=== PATIENT | male | born 1955 | race Caucasian/White ===

== ENCOUNTER 2017-01-01 08:05 | Inpatient (IN) | payer BC ==
--- NOTE | 2016-12-14 09:46 | PAT Medication Instructions ---
Service Date Dec 14, 2016. Current Home Medication List Ibuprofen (Motrin), 800 MG PO QID PRN for Pain Multivitamin (Multivitamin), 1 TAB PO QAM Valsartan (Diovan), 160 MG PO QAM Vitamins C & E (Vitamin C), 1 TAB PO QAM [Lysine], 1 TAB PO QAM [Potassium], 1 TAB PO QAM Medication Instructions For Your Scheduled Surgery - Hold the following medications 7 days prior to surgery: Ibuprofen (Motrin), 800 MG PO QID PRN for Pain - Hold the following medications the morning of surgery: Lysine 1 TAB PO QAM Potassium 1 TAB PO QAM Multivitamin (Multivitamin), 1 TAB PO QAM Vitamins C (Vitamin C), 1 TAB PO QAM Valsartan (Diovan), 160 MG PO QAM - Take the following medications the morning of surgery with a sip of water: Tylenol (if needed) - Take the following medications as scheduled the night before surgery: Tylenol (if needed) If you have any questions please call us at [phone] or [phone] ( Carol) or [phone]
--- NOTE | 2016-12-14 10:25 | DIAGNOSTIC IMAGING REPORT ---
CHEST PREADMISSION(PA/LAT) CLINICAL HISTORY: Preoperative chest COMPARISON STUDY: No previous studies for comparison. FINDINGS: The cardiac and mediastinal contours are normal. There is no evidence of focal pulmonary consolidation. There is no evidence of failure. No pleural effusions are visualized.[ IMPRESSION: No active disease in the chest. Electronically signed by: Arnulfo Hernandez M.D. 12/14/2016 10:24 AM Dictated Date/Time: 12/14/2016 10:24 AM
[2016-12-14 10:35] LABS: BASO % 0.4 %; BASO ABS # 0.03 K/uL (0-0.2); COMPLETE YES; EOS % 3.4 %; HEMATOCRIT 42.9 % (42-52); IG% 0.6 %; LYMPH % 26.2 %; LYMPH ABS # 2.14 K/uL (1.2-3.4); MEAN CELL VOLUME 89.2 fL (80-100); MEAN CORPUSCULAR HGB CONC 34.7 g/dl (32-36); MEAN PLATELET VOLUME 11.7 fL (7.4-10.4); MONO % 12.1 %; NEUT % 57.3 %; PLATELET COUNT 240 K/uL (130-400); RED BLOOD COUNT 4.81 M/uL (4.7-6.1); WHITE BLOOD COUNT 8.17 K/uL (4.8-10.8)
[2016-12-14 10:44] LABS: URINE APPEARANCE CLEAR (CLEAR); URINE BILIRUBIN NEG (NEG); URINE COLOR YELLOW; URINE NITRITE NEG (NEG); URINE SPECIFIC GRAVITY 1.025 (1.000-1.030); UROBILINOGEN NEG (NEG)
[2016-12-14 10:49] LABS: BUN/CREATININE RATIO 19.7 (10-20); CALCIUM 9.2 mg/dl (8.5-10.1); CREATININE 0.92 mg/dl (0.60-1.40); POTASSIUM 4.5 mmol/L (3.5-5.1)
[2016-12-14 10:51] LABS: MANUAL MICROSCOPIC REQUIRED? NO; REVIEW REQ? NO
--- NOTE | 2016-12-28 09:15 | HISTORY & PHYSICAL EXAMINATION ---
DATE OF ADMISSION: 01/01/2017 HISTORY OF PRESENT ILLNESS: The patient presents to our office with a history of chronic back pain. It became remarkably exacerbated in February 2016. He now has radiating pain involving bilateral buttock as well as the right posterior thigh and below the knee. This is reproduced with prolonged sitting, standing and walking. It does awaken him from sleep. 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 He has had several courses of epidural injections which have not provided long-term relief. He takes the antiinflammatory medication for pain control. PAST MEDICAL HISTORY: The patient's medical history is significant for arthritis, skin cancer in 1995, hypertension, pulmonary embolism after right elbow surgery in 1975. PAST SURGICAL HISTORY: Significant for hernia repair, bilateral elbows and finger. ALLERGIES: None listed. MEDICATIONS: 1. Diovan 160 mg a day. 2. Ibuprofen 800 mg 3-4 day. SOCIAL HISTORY: He is . 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 Alcohol is occasional. Tobacco none. Drug use none. FAMILY HISTORY: Significant for arthritis, cancer, hypertension, stroke. REVIEW OF SYSTEMS: Significant for difficulty walking, back pain, leg pain. PHYSICAL EXAMINATION: VITAL SIGNS: 5 feet 6 inches, 180 pounds. HEENT: Speech appropriate. CARDIOPULMONARY: No gross abnormalities. ABDOMEN: Soft, nontender. GENITOURINARY: Deferred. NEUROLOGIC: Cranial nerves II through XII grossly intact. MUSCULOSKELETAL: He ambulates with an antalgic gait. Flexion, extension reproduces pain. He has brisk patella and Achilles reflexes. No ankle clonus. 4+/5 plantarflexion, dorsiflexion and quadriceps bilaterally. No gross tension signs. ASSESSMENT: Spinal stenosis, retrolisthesis of L2-L3. PLAN: At this point in time, he has failed conservative therapy. May consider surgical intervention. Surgery would require lumbar decompression with instrumented fusion L2-L3. Risks, benefits, pros, cons, and alternatives were outlined in detail. The patient would like to proceed with above-mentioned surgical planning.
[~2017-01-01] VITALS: Ht 167.6 cm; Wt 85.5 kg
[2017-01-01] VITALS (8 sets, daily range): BP systolic 128–151; BP diastolic 75–102; PULSE 70–99; TEMP 36.3–36.7; O2SAT 93–98; Ht 167.6 cm; Wt 85.5 kg
--- NOTE | 2017-01-01 07:23 | History & Physical Bridge Note ---
H&P Re-Evaluation Bridge Note: I have examined the patient, reviewed the History & Physical and in the interval since the performance of the History & Physical I have noted the following changes of clinical significance: No changes noted
[~2017-01-01 08:05] MED LIST: CEFAZOLIN 2000 MG/60 ML D5W IV SCH; DVN/160 PO; IBUP-1428 PO; LACTATED RINGER'S 1000ML 1,000 ML IV SCH; LYSINE PO; MULT-506 PO; POTASSIUM PO; VITACAP26 PO
[2017-01-01] MEDS ORDERED: FENTANYL CITRATE INJ 50 MCG/1 ML 2 ML VIAL ONE ×3 (09:31→10:55)
[2017-01-01] MEDS ORDERED: MIDAZOLAM HCL 1 MG/ML 2ML VIAL ONE (09:31)
[2017-01-01] MEDS ORDERED: LABETALOL HCL IV 5 MG/ML 20ML IV PRN (09:45)
[2017-01-01] MEDS ORDERED: FENTANYL CITRATE INJ 50 MCG/1 ML 2 ML VIAL IV PRN (09:45)
[2017-01-01] MEDS ORDERED: EpHEDrine SULFATE INJ 50 MG/ML AMP IV PRN (09:45)
[2017-01-01] MEDS ORDERED: ATROPINE SULFATE 0.1 MG/ML 5ML SYR IV PRN (09:45)
[2017-01-01] MEDS ORDERED: HYDROmorphone INJ 1 MG/ML SYR IV PRN (09:45)
[2017-01-01] MEDS ORDERED: ONDANSETRON INJ 2 MG/ML 2 ML VIAL IV PRN ×2 (09:45→11:45)
[2017-01-01] MEDS ORDERED: MEPERIDINE HCL 25 MG/ML CARP IV PRN (09:45)
[2017-01-01] MEDS ORDERED: BUPIVACAINE/EPINEPHRINE 0.5% MPF 1:200,000 30 ML VIAL ONE (09:53)
[2017-01-01] MEDS ORDERED: BACITRACIN 50000 UNIT VIAL ONE (09:53)
[2017-01-01] MEDS ORDERED: SODIUM CHLORIDE 0.9% PF 50 ML VIAL ONE (09:53)
[2017-01-01] MEDS ORDERED: HYDROmorphone INJ 2 MG/ML SYR/VIAL ONE ×2 (10:37→11:41)
[2017-01-01] MEDS ORDERED: SODIUM CHLORIDE 0.9% 1000ML 1,000 ML IV SCH (11:31)
--- NOTE | 2017-01-01 11:31 | [facility] Post Operative Brief Note ---
Immediate Operative Summary Operative Date Jan 01, 2017. Pre-Operative Diagnosis Spinal stenosis, retrolisthesis of L2-L3 Post-Operative Diagnosis Same as preop Procedure(s) Performed L2-L3 Lumbar Decompression and Fusion with screw fixation; Interbody fusion with Placement of Interbody Spacer at L2-L3; Application of Ayleen Allograft, Application of Bone Morphogenetic Protein Surgeon Dr. Nicolas Izaguirre Donor Services Specialist Surgeon(s) Ghosh ([place]), [place] Estimated Blood Loss 150ML Findings spondy/stenosis Specimens none per surgeon
[2017-01-01] MEDS ORDERED: FLOSEAL HEMOSTATIC MATRIX 10ML TOP ONE (11:33)
[2017-01-01] MEDS ORDERED: EpHEDrine SULFATE 50MG/5ML SYR ONE ×2 (11:40→11:43)
[2017-01-01] MEDS ORDERED: ROCURONIUM BROMIDE 10 MG/ML 5 ML VIAL ONE (11:40)
[2017-01-01] MEDS ORDERED: PHENYLEPHRINE 100MCG/ML 5ML SYR ONE ×2 (11:40→11:43)
[2017-01-01] MEDS ORDERED: PROPOFOL IV EMULSION 10 MG/ML 20 ML VIAL IV ONE (11:40)
[2017-01-01] MEDS ORDERED: LIDOCAINE HCL 2% 2 ML VIAL (20MG/ML) ONE (11:40)
[2017-01-01] MEDS ORDERED: DEXAMETHASONE SOD INJ 4 MG/ML VIAL ONE (11:40)
[2017-01-01] MEDS ORDERED: GLYCOPYRROLATE INJ 0.2 MG/ML VIAL ONE (11:43)
[2017-01-01] MEDS ORDERED: KETOROLAC TROMETHAMINE 30 MG/ML VIAL ONE (11:43)
[2017-01-01] MEDS ORDERED: NEOSTIGMINE METHYLSULFATE 1 MG/ML 10ML VIAL ONE (11:43)
[2017-01-01] MEDS ORDERED: SOD PHOSPHATE/SOD BIPHOSPHATE ENEMA 132 ML BTL PR PRN (11:45)
[2017-01-01] MEDS ORDERED: FAMOTIDINE 20 MG TAB PO PRN (11:45)
[2017-01-01] MEDS ORDERED: PROMETHAZINE HCL INJ 12.5 MG in SODIUM CHLORIDE 0.9% 50ML 50 ML IV PRN (11:45)
[2017-01-01] MEDS ORDERED: LORAZEPAM INJ 0.5 MG in SYRINGE 0 ML IV PRN (11:45)
[2017-01-01] MEDS ORDERED: ACETAMINOPHEN IV 100 ML IV PRN (11:45)
[2017-01-01] MEDS ORDERED: hydrOXYzine HCL 25 MG TAB PO PRN (11:45)
[2017-01-01] MEDS ORDERED: MAGNESIUM HYDROXIDE SUSP 30 ML UDC PO PRN (11:45)
[2017-01-01] MEDS ORDERED: ACETAMINOPHEN 500 MG TAB PO PRN (11:45)
[2017-01-01] MEDS ORDERED: DO NOT ADMINISTER PNEUMOCOCCAL VACCINE PRN ×2 (11:45)
[2017-01-01] MEDS ORDERED: LORAZEPAM 0.5 MG TAB PO PRN (11:45)
[2017-01-01] MEDS ORDERED: ALUMINUM/MAGNESIUM SUSP 30 ML UDC PO PRN (11:45)
[2017-01-01] MEDS ORDERED: METOCLOPRAMIDE HCL INJ 5 MG/ML 2 ML VIAL IV PRN (11:45)
[2017-01-01] MEDS ORDERED: NALOXONE HCL 0.4 MG/1 ML VIAL/CARP IV PRN ×2 (11:45)
[2017-01-01] MEDS ORDERED: BISACODYL 10 MG SUPP PR PRN (11:45)
[2017-01-01] MEDS ORDERED: DO NOT ADMINISTER FLU VACCINE PRN ×3 (11:45)
[2017-01-01] MEDS ORDERED: HYDROmorphone HCL 0.5MG/ML 50 ML CASSETTE ONE (12:10)
[2017-01-01] MEDS ORDERED: ONDANSETRON INJ 2 MG/ML 2 ML VIAL ONE (12:11)
[2017-01-01] MEDS ORDERED: ESMOLOL HCL 10 MG/ML 10 ML VIAL ONE (12:12)
--- NOTE | 2017-01-01 12:15 | DIAGNOSTIC IMAGING REPORT ---
LUMBAR SPINE, INTRAOPERATIVE FLUOROSCOPY HISTORY: L2-L3 decompression and fusion. FLUOROSCOPY TIME: 19 seconds. FINDINGS: Intraoperative fluoroscopy was provided for the lumbar spine. 2 fluoroscopic spot images were obtained. Posterior decompression and fusion at L2-L3 with pedicle screws and rods. The hardware appears intact. IMPRESSION: Fluoroscopy provided for a L2-L3 posterior decompression and fusion. Electronically signed by: Everton Sewell M.D. 01/01/2017 12:12 PM Dictated Date/Time: 01/01/2017 12:12 PM
[2017-01-01] MEDS: LACTATED RINGER'S 1000ML 1,000 ML IV SCH ×2 (13:00→17:43)
[2017-01-01] MEDS ORDERED: RXC5 PO (13:56)
--- NOTE | 2017-01-01 13:57 | Discharge Instructions ---
Discharge Instructions Date of Service Jan 01, 2017. Admission Reason for Admission: Lumbar Spinal Stenosis Discharge Discharge Diagnosis / Problem: stenosis Discharge Goals Goal(s): Improve function Activity Recommendations Activity Limitations: per Instructions/Follow-up section . Instructions / Follow-Up Instructions / Follow-Up ACTIVITY RECOMMENDATIONS: SELF CARE INSTRUCTIONS AFTER THORACIC/LUMBAR FUSIONS 1. You may walk to your tolerance. It is good exercise for your legs and back. Expect some back and intermittent leg aches and pains. 2. You may perform "counter-top" level activities (make a sandwich, soledad with a project, etc.). 3. No bending or lifting of more than 10 pounds or back twisting of any nature (roll like a log when turning in bed). 4. You may ride in a car for 20-30 minutes at a time. No driving until after your first visit with your doctor. 5. Frequent changes of position and restricting sitting to 30 minutes at a time will help limit the amount of back spasms and stiffness you may experience. 6. You may discontinue the use of ambulatory aids (cane, crutches, etc.) once your strength and confidence allow. 7. You may business performance advisor the shower and let water strike your incision when you arrive home at least once daily. Do not take a tub bath, sit in a hot tub or go into a swimming pool until after your first recheck in the office. SPECIAL CARE INSTRUCTIONS: VERY IMPORTANT TO READ AND REVIEW A. Your surgical incision has been closed with a cosmetic suture under the skin that will dissolve in about 6 weeks. In 14 days, you can use a pair of clean scissors and cut the suture that is left outside of the skin at the ends of your incision. 1. The small skin tapes can be removed 7 days after surgery if they have not fallen off by that point. 2. You may keep the wound open to air as much as possible to promote healing after post-op day number 5 unless told otherwise by your doctor. 3. If you think the wound looks like it is becoming infected (redness or worsening drainage) and/or you are experiencing fever, chill or worsening back pain and muscle spasms, contact the office so that we may evaluate you as soon as possible. B. Complications are uncommon, but please contact us if you have any signs or symptoms of: 1. wound infection (fever higher than 102.5 degrees F, redness, separation of wound, drainage, or increasing pain from the incision) 2. blood clots in legs (pain, swelling, redness and warmth in legs) 3. urinary tract infection (fever higher than 102.5 degrees F, burning upon urination or increased frequency of urination) 4. nerve problems (inability to walk on your toes or heels, numbness, loss of bowel or bladder control) 5. any other symptoms that concern you C. Please call the office at if you have any concerns or questions about your operation or recovery. D. No smoking! Smoking drastically decreases the chance of a solid fusion. E. Do not take any anti-inflammatory medications (Indocin, Advil, Motrin, Aspirin, Naprosyn, etc.) as these may inhibit the chance of a solid fusion. Tylenol is okay to take for pain. MANAGING PAIN AFTER SPINAL SURGERY 1. Narcotic medication is intended for short-term use and will be provided for surgical pain. Surgical pain usually lasts for a period of 4-6 weeks. Narcotic medication includes Percocet, Vicodin, Darvocet, Tylenol #3 or Lortab. 2. Longer-term pain is more appropriately treated with non-narcotic medication such as Tylenol ES. 3. Muscle spasm is not appropriately treated with narcotics. Muscle relaxers such as Soma, Flexeril or Skelaxin can be used along with Tylenol ES. 4. Remember that we all live with some "aches and pains". This is not unusual or uncommon after an injury or as we get older. a. Back pain is expected and may include muscle spasms for 4 to 6 weeks after surgery. The pain should gradually improve. If the pain worsens for no apparent reason, please contact the office. b. Intermittent leg pain may also be experienced and should not be concerned about unless it worsens for no apparent reason. If so, please contact the office. 5. We will provide appropriate medication within the normal guidelines of their prescribed use. We will also be very cautious and aware of potential abuse and extended duration of patients' medication needs. a. Pain medications are for your comfort and to assist with sleep and rest so that the tissue can heal. They are not provided in order to return to normal activity and should not be used through the day. To do so or worsening pain at night can result from ongoing tissue damage and development of tolerance to the prescribed medicine. 6. Please allow 2-3 days to process refills. Prescriptions will not be mailed but must be picked up at the office. FOLLOW UP VISIT: Keep your scheduled follow-up appointment. Any questions, please call the office at . Current Hospital Diet Patient's current hospital diet: Regular Diet Discharge Diet Recommended Diet: Regular Diet Procedures Procedures Performed: L2-L3 Lumbar Decompression and Fusion with screw fixation; Interbody fusion with Placement of Interbody Spacer at L2-L3; Application of Ayleen Allograft, Application of Bone Morphogenetic Protein Pending Studies Studies pending at discharge: no Medical Emergencies . Who to Call and When: Medical Emergencies: If at any time you feel your situation is an emergency, please call 911 immediately. . Non-Emergent Contact Non-Emergency issues call your: Primary Care Provider . "Provider Documentation" section prepared by Nicolas Izaguirre. VTE Core Measure Inpt VTE Proph given/why not?: Robbie Solis, [facility]
--- NOTE | 2017-01-01 13:59 | Anesthesiology Progress Note ---
Anesthesia Post Op Note Date & Time Jan 01, 2017 at 13:58 Vital Signs Pain Intensity: 5.0 Vital Signs Past 12 Hours Date Time Temp Pulse Resp B/P Pulse Ox O2 Delivery O2 Flow Rate FiO2 01/01/17 13:35 36.3 90 16 143/81 93 Nasal Cannula 3.0 01/01/17 13:00 99 16 143/89 94 Nasal Cannula 4.0 01/01/17 13:00 Nasal Cannula 01/01/17 13:00 95 Nasal Cannula 4.0 01/01/17 12:45 93 21 144/89 97 Nasal Cannula 4 01/01/17 12:35 36.1 93 10 138/102 94 Nasal Cannula 4 01/01/17 12:25 90 13 130/87 98 Nasal Cannula 4 01/01/17 12:15 91 12 124/92 100 Mask 10 01/01/17 12:05 95 14 144/86 98 Mask 10 01/01/17 11:58 36.5 96 14 135/88 99 Mask 10 01/01/17 08:34 36.7 70 18 151/102 95 Room Air Notes Mental Status: alert / awake / arousable, participated in evaluation Pt Amnestic to Procedure: Yes Nausea / Vomiting: adequately controlled Pain: adequately controlled Airway Patency, RR, SpO2: stable & adequate BP & HR: stable & adequate Hydration State: stable & adequate Anesthetic Complications: no major complications apparent
[2017-01-01] MEDS ORDERED: HYDROmorphone INJ 0.5 MG/0.5 ML SYR IV PRN (14:15)
--- NOTE | 2017-01-01 14:27 | OPERATIVE REPORT ---
DATE OF OPERATION: 01/01/2017 PREOPERATIVE DIAGNOSIS: Spinal stenosis. POSTOPERATIVE DIAGNOSES: Same with bilateral pars defects and spondylolisthesis L2-L3. PROCEDURES PERFORMED: 1. Lumbar decompression, medial facetectomy, and foraminotomies, L2-L3. 2. Posterior spinal fusion, L2-L3. 3. Placement of posterior instrumentation using Orthros rods and screws, L2-L3. 4. Interbody fusion, L2-L3. 5. Placement of PEEK cage 10 x 22 mm at L2-L3. 6. Placement of locally harvested morselized autograft posterior gutters. 7. Placement of Infuse collagen sponge combined with Mastergraft in the posterior gutters and Ayleen bone grafting in the interbody space. SURGEON: Dr. Nicolas Izaguirre. DIRECTOR OF PUBLIC HEALTH: DELON Ortiz. Due to the complex nature of the procedure, the entire surgery was performed with the public health assistant of DELON Ortiz. The bindery library technical assistant, under direct supervision, was involved in the actual performance of all aspects of the surgical procedure including hemostasis, tissue retraction and incision, instrument management, patient positioning, and wound closure. ANESTHESIA: General. DISPOSITION: The patient awakened and taken to PACU in stable condition. HISTORY OF PATIENT'S PROBLEMS: This is a 61-year-old male who presents with above-mentioned diagnoses. After failing an extensive course of nonoperative care, he elected to undergo the above-mentioned procedures. Risks, benefits, pros, cons, and alternatives were outlined in detail preoperatively. DESCRIPTION OF PROCEDURE: The patient was met with preoperatively, the case discussed and all questions were addressed. At that point the patient was taken back to operative suite and after undergoing successful general intubation by the department of anesthesia, he was placed in prone position on Nba table atop Mike frame. All bony prominences were well padded and the eyes were inspected to ensure there was no external pressure placed upon them. At this point, lumbar spine was prepped and draped in normal sterile fashion. Sharp dissection with the assistance of Bovie cautery performed down to and exposing the lamina and transverse processes of L2-L3 bilaterally. Obvious pars defect was noted. Complete laminectomy of L2 was performed addressing severe lateral recess and foraminal stenosis. Pedicle screws were then placed in L2 and L3 bilaterally with the assistance of fluoroscopy and appropriate size manuel provisionally placed. Through a transforaminal approach on the right, a complete diskectomy was performed, endplates curetted to subcortical bleeding bone and a 10 x 22 mm PEEK cage filled with Ayleen bone grafting tapped into position. Appropriate sized rods were then compressed, locked into final position bilaterally and transverse processes of L2-L3 burred to subcortical bleeding bone. Infuse collagen sponge combined with Mastergraft and locally harvested morselized autograft was placed in the posterior gutters. A 7 flat THU drain inserted. Incision was closed with 1-0 Vicryl in the fascia, 2-0 Vicryl subcutaneously, and 4-0 Monocryl for final skin closure. Steri-Strips and sterile dressing placed. The patient was awakened and taken to PACU in stable condition. I attest to the content of the Intraoperative Record and any orders documented therein. Any exceptio ns are noted below.
[2017-01-01] MEDS: HYDROmorphone HCL 0.5MG/ML 50 ML CASSETTE IV PRN ×2 (14:54→23:10)
[2017-01-01] MEDS: CEFAZOLIN IV 2,000 MG in DEXTROSE 5% 50ML 50 ML IV SCH (17:43)
[2017-01-01] MEDS: DOCUSATE SODIUM/SENNA 50/8.6MG TAB PO SCH (20:59)
[2017-01-01] MEDS: DEXAMETHASONE INJ 6 MG in SYRINGE 0 ML IV SCH (21:00)
[2017-01-02] MEDS: LACTATED RINGER'S 1000ML 1,000 ML IV SCH (00:16)
[2017-01-02] MEDS: CEFAZOLIN IV 2,000 MG in DEXTROSE 5% 50ML 50 ML IV SCH (01:44)
[2017-01-02] MEDS: DEXAMETHASONE INJ 6 MG in SYRINGE 0 ML IV SCH ×2 (03:43→12:08)
[2017-01-02 03:55] VITALS: BP 125/75; PULSE 95; TEMP 36.5; O2SAT 96
[2017-01-02 05:11] VITALS: PULSE 95; O2SAT 95
[2017-01-02] MEDS ORDERED: HYDROmorphone INJ 0.5 MG/0.5 ML SYR IV PRN ×2 (06:00)
[2017-01-02] MEDS ORDERED: DC PCA SCH (06:00)
[2017-01-02 06:19] LABS: COMPLETE YES; HEMATOCRIT 34.8 % (42-52); IG% 0.3 %; LYMPH % 4.4 %; LYMPH ABS # 0.92 K/uL (1.2-3.4); MEAN CELL VOLUME 89.5 fL (80-100); MEAN CORPUSCULAR HEMOGLOBIN 30.1 pg (25-34); MEAN CORPUSCULAR HGB CONC 33.6 g/dl (32-36); MEAN PLATELET VOLUME 11.3 fL (7.4-10.4); MONO % 4.1 %; NEUT % 91.2 %; PLATELET COUNT 223 K/uL (130-400); RED BLOOD COUNT 3.89 M/uL (4.7-6.1)
[2017-01-02] MEDS ORDERED: NURSING VERBAL MED ORDER ONE (06:30)
[2017-01-02 06:46] LABS: BUN/CREATININE RATIO 18.3 (10-20); CALCIUM 8.3 mg/dl (8.5-10.1); CREATININE 0.93 mg/dl (0.60-1.40); POTASSIUM 4.6 mmol/L (3.5-5.1)
[2017-01-02] MEDS: OXYCODONE HCL IR 5 MG TAB (IMMEDIATE RELEASE) PO PRN ×3 (07:09→13:54)
[2017-01-02 07:43] VITALS: BP 131/84; PULSE 92; TEMP 36.6; O2SAT 92
--- NOTE | 2017-01-02 08:20 | Anesthesiology Progress Note ---
Anesthesia Post Op Note Date & Time Jan 02, 2017 at 08:15 Vital Signs Pain Intensity: 3.0 Vital Signs Past 12 Hours Date Time Temp Pulse Resp B/P Pulse Ox O2 Delivery O2 Flow Rate FiO2 01/02/17 07:43 36.6 92 16 131/84 92 Room Air 01/02/17 07:00 Room Air 01/02/17 05:11 95 95 Room Air 01/02/17 03:55 36.5 95 16 125/75 96 Nasal Cannula 2.0 01/02/17 00:23 Nasal Cannula 2.0 01/01/17 23:12 36.4 97 16 135/82 94 Nasal Cannula 2.0 Notes Mental Status: alert / awake / arousable, participated in evaluation Pt Amnestic to Procedure: Yes Nausea / Vomiting: adequately controlled Pain: adequately controlled Airway Patency, RR, SpO2: stable & adequate BP & HR: stable & adequate Hydration State: stable & adequate Anesthetic Complications: no major complications apparent
--- NOTE | 2017-01-02 08:45 | PROGRESS NOTE ---
DATE: 01/02/2017 DATE: 01/02/2017. SUBJECTIVE: Postop day 1. Back pain controlled. Leg pain improved. Vital signs stable. T-max 36.6. THU drained 80 mL. Hematocrit this a.m. is 34.8. OBJECTIVE: On exam, he has good strength to testing, appears comfortable. ASSESSMENT: Status post lumbar decompression and fusion. PLAN: At this time, initiate physical therapy, advance bowel regimen and hopefully discharge home tomorrow.
[2017-01-02] MEDS: VALSARTAN 160 MG PO SCH (08:58)
[2017-01-02] MEDS ORDERED: VALSARTAN 80 MG TAB PO SCH (09:00)
[2017-01-02 11:38] VITALS: BP 103/65; PULSE 90; TEMP 36.6; O2SAT 93
[2017-01-02 15:17] VITALS: BP 129/83; PULSE 95; TEMP 36.6; O2SAT 93
[2017-01-02] MEDS: HYDROmorphone INJ 1 MG/ML SYR IV PRN ×2 (17:18→20:37)
[2017-01-02] MEDS: DOCUSATE SODIUM/SENNA 50/8.6MG TAB PO SCH (20:35)
[2017-01-02 23:29] VITALS: BP 149/99; PULSE 97; TEMP 36.7; O2SAT 93
[2017-01-03] MEDS: POLYETHYLENE (MIRALAX) 17 GM PACK PO SCH ×3 (05:16→18:00)
[2017-01-03] MEDS: OXYCODONE HCL IR 5 MG TAB (IMMEDIATE RELEASE) PO PRN ×3 (05:17→18:18)
[2017-01-03 06:01] VITALS: BP 123/80; PULSE 86; TEMP 36.6; O2SAT 93
--- NOTE | 2017-01-03 07:17 | Discharge Instructions ---
Discharge Instructions Date of Service Jan 03, 2017. Admission Reason for Admission: Lumbar Spinal Stenosis Discharge Discharge Diagnosis / Problem: post op Discharge Goals Goal(s): Decrease discomfort, Improve function, Increase independence Activity Recommendations Activity Limitations: per Instructions/Follow-up section . Current Hospital Diet Patient's current hospital diet: Regular Diet Discharge Diet Recommended Diet: Regular Diet Procedures Procedures Performed: L2-L3 Lumbar Decompression and Fusion with screw fixation; Interbody fusion with Placement of Interbody Spacer at L2-L3; Application of Ayleen Allograft, Application of Bone Morphogenetic Protein Pending Studies Studies pending at discharge: no Medical Emergencies . Who to Call and When: Medical Emergencies: If at any time you feel your situation is an emergency, please call 911 immediately. . Non-Emergent Contact Non-Emergency issues call your: Primary Care Provider . "Provider Documentation" section prepared by Mireya Cordova. VTE Core Measure Inpt VTE Proph given/why not?: [facility] [place] Drug Monitoring Program Search Results: patient reviewed within database (unable to find patient match in system)
[2017-01-03] MEDS: VALSARTAN 160 MG PO SCH (07:50)
--- NOTE | 2017-01-03 14:55 | DISCHARGE SUMMARY ---
PREOPERATIVE DIAGNOSIS: Spinal stenosis. HOSPITAL COURSE FOLLOWS: On January 01 the patient underwent lumbar decompression and fusion L2-L3, tolerated this well and taken to the orthopedic floor postoperatively. Postop day #1, he was up and ambulatory, pain improved. Postop day #2, continued to improve nicely. Pain well controlled. Subsequently discharged home. Discharge orders and instructions found on the chart for further review.
[2017-01-03 15:03] VITALS: BP 130/80; PULSE 88; TEMP 36.8; O2SAT 96
[2017-01-03 15:11] VITALS: BP 130/80; PULSE 88; TEMP 36.8; O2SAT 96
== END 2017-01-03 19:20 | disposition home health service (06) | DRG 460 ==
LOC: ENRESERVTM → ENRESERVDT → C.ACU 08:05 → C.3E 09:30
PROVIDERS: ADMIT Orthopaedic Surgery Orthopaedic Surgery of the Spine; ATTEND Orthopaedic Surgery Orthopaedic Surgery of the Spine
PROC: 0ST20ZZ Resection of Lumbar Vertebral Disc, Open Approach (ICD-10-PCS; principal; 2017-01-01 10:20)
PROC: 0SG0071 Fusion of Lumbar Vertebral Joint with Autologous Tissue Substitute, Posterior Approach, Posterior Column, Open Approach (ICD-10-PCS; principal; 2017-01-01 10:20)
PROC: 0SG00AJ Fusion of Lumbar Vertebral Joint with Interbody Fusion Device, Posterior Approach, Anterior Column, Open Approach (ICD-10-PCS; principal; 2017-01-01 10:20)
DX: M48.00 Spinal stenosis, site unspecified (principal); M43.16 Spondylolisthesis, lumbar region; M47.816 Spondylosis without myelopathy or radiculopathy, lumbar region; I10 Essential (primary) hypertension; G47.33 Obstructive sleep apnea (adult) (pediatric); M19.90 Unspecified osteoarthritis, unspecified site; E66.9 Obesity, unspecified; Z68.30 Body mass index [BMI] 30.0-30.9, adult; Z86.711 Personal history of pulmonary embolism; Z87.891 Personal history of nicotine dependence; Z91.19 Patient's noncompliance with other medical treatment and regimen; Z79.1 Long term (current) use of non-steroidal anti-inflammatories (NSAID); Z79.899 Other long term (current) drug therapy

== ENCOUNTER 2017-01-04 16:10 | Observation (INO) | payer BC ==
[~2017-01-04] VITALS: Ht 167.6 cm; Wt 85.5 kg
[~2017-01-04 16:10] MED LIST changes: -CEFAZOLIN 2000 MG/60 ML D5W IV SCH; -IBUP-1428 PO; -LACTATED RINGER'S 1000ML 1,000 ML IV SCH; +RXC5 PO
[2017-01-04 16:28] VITALS: BP 137/88; PULSE 83; TEMP 36.9; O2SAT 96
[2017-01-04] MEDS ORDERED: LORAZEPAM 1 MG TAB PO PRN (17:00)
[2017-01-04] MEDS ORDERED: PROMETHAZINE HCL INJ 12.5 MG in SODIUM CHLORIDE 0.9% 50ML 50 ML IV PRN (17:00)
[2017-01-04] MEDS ORDERED: LORAZEPAM INJ 1 MG in SYRINGE 0 ML IV PRN (17:00)
[2017-01-04] MEDS ORDERED: ONDANSETRON INJ 2 MG/ML 2 ML VIAL IV PRN (17:00)
[2017-01-04 17:05] VITALS: BP 137/88; PULSE 83; TEMP 36.9; Ht 167.6 cm; Wt 85.5 kg
[2017-01-04] MEDS ORDERED: IV FLUIDS COMPLETED PRN (17:15)
[2017-01-04] MEDS ORDERED: PATIENT'S HEIGHT AND/OR WEIGHT NEEDED SCH (17:30)
[2017-01-04] MEDS ORDERED: NURSING VERBAL MED ORDER ONE (17:45)
[2017-01-04] MEDS ORDERED: SODIUM CHLORIDE 0.9% 1000ML 1,000 ML IV SCH (17:45)
[2017-01-04 18:22] LABS: HEMATOCRIT 39.1 % (42-52); MEAN CELL VOLUME 93.1 fL (80-100); MEAN CORPUSCULAR HGB CONC 32.2 g/dl (32-36); MEAN PLATELET VOLUME 10.7 fL (7.4-10.4); PLATELET COUNT 242 K/uL (130-400); WHITE BLOOD COUNT 15.34 K/uL (4.8-10.8)
[2017-01-04] MEDS ORDERED: MAGNESIUM HYDROXIDE SUSP 30 ML UDC PO PRN (18:30)
[2017-01-04] MEDS ORDERED: MILK AND MOLASSES ENEMA PR ONE (18:30)
[2017-01-04] MEDS: KETOROLAC TROMETHAMINE 30 MG/ML VIAL IV PRN (18:39)
--- NOTE | 2017-01-04 18:47 | Medical Consult ---
Consultation Date of Consultation: Jan 04, 2017. Attending Physician: Nicolas Izaguirre D.O. Reason for Consultation: constipation History of Present Illness This is a 61 y/o male with PMHx of spinal stenosis s/p recent lumbar decompression/fusion, HTN and other problems as outlined below who was directly admitted by Dr. Izaguirre for post-op constipation. Medicine service is being consulted regarding patients constipation. Pt had a lumbar decompression/fusion performed by Dr. Izaguirre on 01/01/17. Per notes, patient did well post- operatively and was discharged yesterday (01/03/17) with Oxycodone q 4 hrs PRN. Last night patient developed worsening abd pain which he describes as a 4/10 "pressure" and "bloating". Sxs are assoc with loss of appetite, nausea and abdominal distention. He has passed small amounts of gas. Last normal BM was 4 days ago. He reports that he typically has 6 soft bowel movements daily. Patient tried taking Senokot last night and an oil enema this morning with no relief. This morning, he experienced two near-syncopal episodes, one while sitting on the commode and the second while lying in bed. He was seen by Dr. Izaguirre in the clinic today who recommended he return to the hospital for inpatient care. Pt denies chest pain, palpitations, SOB, vomiting, bladder issues, LE edema or calf pain. Past Medical/Surgical History Medical Problems: (1) History of pulmonary embolus (PE) Permanent Comment: s/p elbow surgery 1975 Status: Resolved (2) HTN (hypertension) Status: Chronic (3) Osteoarthritis Status: Chronic Surgical Problems: (1) H/O elbow surgery Permanent Comment: bilateral Status: Resolved (2) H/O hernia repair Status: Resolved (3) S/P lumbar spinal fusion Permanent Comment: Dr. Izaguirre 01/01/17 Status: Resolved Social History Smoking Status: Never Smoker Alcohol Use: occasionally Drug Use: none Marital Status: Housing Status: lives with significant other Allergies Coded Allergies: Oxycodone (Verified Allergy, Intermediate, HIVES, 01/04/17) HIVES/ITCHINESS Current Inpatient Medications Current Inpatient Medications Medications (Trade) Dose Ordered Sig/Tay Route Start Time Stop Time Status Last Admin Dose Admin Acetaminophen (Tylenol Tab) 650 mg Q6H PRN PO 01/04/17 17:00 02/03/17 16:59 Docusate Sodium 100 mg 100 mg BID PO 01/04/17 21:00 02/03/17 20:59 Dexamethasone Sodium Phosphate 8 mg/Syringe 2 ml @ 1 mls/min Q8 IV 01/04/17 22:00 01/05/17 14:01 Promethazine HCl/ Sodium Chloride (Phenergan Inj/ Nss 50ml) 50.5 ml @ 202 mls/hr Q6H PRN IV 01/04/17 17:00 02/03/17 16:59 Ondansetron HCl (Zofran Inj) 4 mg Q6H PRN IV 01/04/17 17:00 02/03/17 16:59 Lorazepam 1 mg 1 mg Q6H PRN PO 01/04/17 17:00 02/03/17 16:59 Lorazepam/Syringe (Ativan Inj/ Syringe) 0.5 ml @ 1 mls/min Q6H PRN IV 01/04/17 17:00 02/03/17 16:59 Cyclobenzaprine HCl (Flexeril Tab) 10 mg Q8H PRN PO 01/04/17 17:00 02/03/17 16:59 Ketorolac Tromethamine 30 mg 30 mg Q6H PRN IV 01/04/17 17:00 01/09/17 16:59 Dextrose/Lactated Ringer's (D5W And Lactated Ringers) 1,000 ml @ 150 mls/hr Q6H40M IV 01/04/17 17:00 02/03/17 16:59 Miscellaneous (Iv Fluids Completed) 1 ea PRN PRN N/A 01/04/17 17:15 01/04/18 17:14 Miscellaneous Information (Nursing Verbal Med Order) 1 ea ONE ONCE N/A 01/04/17 17:45 01/04/17 17:46 UNV Review of Systems Constitutional: + fatigue, + sweats (resolved), No weakness Eyes: + worsening of vision (blurred: resolved) Respiratory: No cough, No shortness of breath Cardiovascular: No chest pain, No claudication, No edema Abdomen: + constipation, + nausea, + pain, No GI bleeding, No diarrhea, No vomiting Musculoskeletal: No calf pain, No swelling Genitourinary - Male: No dysuria Neurologic: No weakness Psychiatric: No depression symptoms Endocrine: + fatigue Hematologic / Lymphatic: No abnormal bleeding/bruising Integumentary: No new/changing skin lesions Physical Exam Date Time Temp Pulse Resp B/P Pulse Ox O2 Delivery O2 Flow Rate FiO2 01/04/17 17:05 36.9 83 18 137/88 Room Air 01/04/17 16:28 36.9 83 18 137/88 96 Room Air General Appearance: WD/WN, no apparent distress, + pertinent finding (Pt is laying in bed comfortably ) Head: normocephalic, atraumatic Eyes: normal inspection ENT: hearing grossly normal Neck: supple Respiratory/Chest: chest non-tender, lungs clear, normal breath sounds, no respiratory distress Cardiovascular: regular rate, rhythm, no edema, no murmur Abdomen/GI: normal bowel sounds, soft, + tenderness (RLQ>LLQ) Back: + pertinent finding (surgical scar noted to lumbar spine; no erythema, edema or drainage) Extremities/Musculoskelatal: normal inspection, no calf tenderness, no pedal edema Neurologic/Psych: alert, normal mood/affect, oriented x 3 Skin: normal color, warm/dry Laboratory Results Last 24 Hours Test 01/04/17 17:31 Assessment & Plan POST-OP OPIOID-INDUCED CONSTIPATION pt presented with constipation, abd pain, nausea and loss of appetite; s/p lumbar decomp/fusion 01/01/[address] Izaguirre -admitted to med/surg -vitals stable -obtain CBC and CMP -check KUB to r/o obstruction -give milk of molasses enema now -start Senokot and Milk of Magnesia -gentle IVF -encouraged patient to ambulate if able -monitor RECENT LUMBAR DECOMPRESSION/FUSION -POD #3 -defer mgmt to surgical team HTN -BP stable -cont losartan -monitor DVT PROPHYLAXIS -SCDs per surgery CODE STATUS -FULL CODE status DISPO Pt seen in collaboration with Dr. Robbins. Please see addendum for further details. Thanks! -of note: patient will be followed by Dr. Leo starting tomorrow AM. Mr. Christianson responded well to the enema given this evening and feels less pressure in his abdomen. He is now reporting sciatica and has a SLR test bilaterally on exam with no neurologic deficits at this time. Back pain is being controlled with non-narcotic medications and oxycodone will be avoided as it made him "appear toxic" to family members at home. Otherwise, I have discussed the case with the provider above and agree with the plan. Thank you for the consult. Kaylah Robbins, DO
[2017-01-04 18:54] LABS: BUN/CREATININE RATIO 18.6 (10-20); CALCIUM 8.5 mg/dl (8.5-10.1); CREATININE 0.93 mg/dl (0.60-1.40)
--- NOTE | 2017-01-04 19:23 | DIAGNOSTIC IMAGING REPORT ---
CHEST AND ABDOMEN 2 VIEWS HISTORY: Postop complications. Generalized abdominal pain. COMPARISON: Chest 12/14/2016. FINDINGS: The lungs are clear. The heart is normal in size. No pleural effusions. No pneumothorax. No pneumoperitoneum or pneumatosis. Multiple nondilated gas-filled loops of large and small bowel seen throughout the abdomen. There are fluid levels throughout the colon. Posterior decompression fusion at L2-L3 with pedicle screws and rods. No renal or ureteral calculi. Moderate stool within the distal colon. IMPRESSION: Borderline dilated gas-filled loops of small bowel throughout the abdomen. There is also gas and stool seen throughout the colon. Therefore, this favors a low-grade ileus. No evidence for bowel obstruction at this time. Electronically signed by: Everton Sewell M.D. 01/04/2017 7:21 PM Dictated Date/Time: 01/04/2017 7:19 PM
[2017-01-04] MEDS: TRAMADOL HCL 50 MG TAB PO PRN (19:26)
[2017-01-04] MEDS: D5W AND LACTATED RINGERS 1,000 ML IV SCH (19:28)
[2017-01-04] MEDS: CYCLOBENZAPRINE HCL 10 MG TAB PO PRN (21:58)
[2017-01-04] MEDS: DOCUSATE SODIUM 100 MG CAP PO SCH (21:59)
[2017-01-04] MEDS: DEXAMETHASONE INJ 8 MG in SYRINGE 0 ML IV SCH (21:59)
[2017-01-04 23:58] VITALS: BP 115/70; PULSE 84; TEMP 36.9; O2SAT 91
[2017-01-05] MEDS: D5W AND LACTATED RINGERS 1,000 ML IV SCH ×3 (00:10→12:33)
[2017-01-05] MEDS: KETOROLAC TROMETHAMINE 30 MG/ML VIAL IV PRN (03:20)
[2017-01-05] MEDS: DEXAMETHASONE INJ 8 MG in SYRINGE 0 ML IV SCH ×2 (05:48→13:28)
[2017-01-05 06:22] LABS: HEMATOCRIT 36.7 % (42-52); MEAN CELL VOLUME 91.8 fL (80-100); MEAN CORPUSCULAR HGB CONC 32.7 g/dl (32-36); MEAN PLATELET VOLUME 10.8 fL (7.4-10.4); PLATELET COUNT 237 K/uL (130-400); WHITE BLOOD COUNT 13.79 K/uL (4.8-10.8)
[2017-01-05 07:09] LABS: BUN/CREATININE RATIO 19.4 (10-20); CALCIUM 8.5 mg/dl (8.5-10.1); CREATININE 0.77 mg/dl (0.60-1.40); POTASSIUM 4.5 mmol/L (3.5-5.1)
[2017-01-05] MEDS: POTASSIUM - ORDER AWAITING ACTION SCH ×4 (08:00→22:38)
[2017-01-05 08:07] VITALS: BP 164/89; PULSE 81; TEMP 36.8; O2SAT 94
[2017-01-05] MEDS: VALSARTAN 160 MG TAB PO SCH (08:30)
[2017-01-05] MEDS: DOCUSATE SODIUM/SENNA 50/8.6MG TAB PO SCH (08:36)
[2017-01-05] MEDS: DOCUSATE SODIUM 100 MG CAP PO SCH ×2 (08:36→19:58)
[2017-01-05] MEDS: MULTIVITAMIN TAB PO SCH (08:36)
[2017-01-05] MEDS ORDERED: VALSARTAN 80 MG TAB PO SCH (09:00)
[2017-01-05] MEDS: ACETAMINOPHEN 325 MG TAB PO PRN ×2 (12:20→19:59)
--- NOTE | 2017-01-05 14:59 | Progress Note ---
Internal Med Progress Note Date of Service: Jan 05, 2017. Provider Documentation: SUBJECTIVE: Patient is doing better Had a BM yesterday, today. Mild nausea, no abdominal pain, bloating, vomiting, fever, chills. Tolerating clear liquids OBJECTIVE: Vital Signs-as noted below Exam: General-AAOX3, no distress Neck-Supple, NO JVD Lungs-AEBE, no wheezing, crackles Heart-S1, S2 normal, no murmurs Abdomen-Soft, slight abdominal distension, BS present, no rigidity Extremities-No edema Back- S/P back surgery Lab data as noted below. ASSESSMENT & PLAN: POST-OP OPIOID-INDUCED CONSTIPATION /MILD ILEUS - Improved Patient was discharged a day before post lumbar surgery and came back with constipation,abd pain, nausea and loss of appetite; s/p lumbar decomp/fusion by Dr. Zina CHANDLER-Low grade ileus -S/P MOM enema, Senakot, Milk of Magnesia- Had BM yesterday and today, loose -Tolerated clear liquid well---> Advance to mechanical soft diet -IVF -Encouraged to use alternate for narcotics for pain mx- tylenol and on IV dexamethasone per ortho RECENT LUMBAR DECOMPRESSION/FUSION -POD #4 -defer mgmt to surgical team HTN -BP stable -cont losartan -monitor DVT PROPHYLAXIS -SCDs per surgery CODE STATUS -FULL CODE status DISPO Medical mx in progress Vital Signs: Date Time Temp Pulse Resp B/P Pulse Ox O2 Delivery O2 Flow Rate FiO2 01/05/17 08:07 36.8 81 16 164/89 94 Room Air 01/05/17 08:00 Room Air 01/05/17 00:00 Room Air 01/04/17 23:58 36.9 84 18 115/70 91 Room Air 01/04/17 17:05 36.9 83 18 137/88 Room Air 01/04/17 16:28 36.9 83 18 137/88 96 Room Air 01/04/17 16:15 Room Air Lab Results: Results Past 24 Hours Test 01/04/17 18:12 01/05/17 05:58 Range/Units White Blood Count 15.34 13.79 4.8-10.8 K/uL Red Blood Count 4.20 4.00 4.7-6.1 M/uL Hemoglobin 12.6 12.0 14.0-18.0 g/dL Hematocrit 39.1 36.7 42-52 % Mean Corpuscular Volume 93.1 91.8 80-100 fL Mean Corpuscular Hemoglobin 30.0 30.0 25-34 pg Mean Corpuscular Hemoglobin Concent 32.2 32.7 32-36 g/dl RDW Standard Deviation 47.0 44.4 36.4-46.3 fL RDW Coefficient of Variation 13.7 13.2 11.5-14.5 % Platelet Count 242 237 130-400 K/uL Mean Platelet Volume 10.7 10.8 7.4-10.4 fL Sodium Level 139 139 136-145 mmol/L Potassium Level 4.0 4.5 3.5-5.1 mmol/L Chloride Level 99 103 98-107 mmol/L Carbon Dioxide Level 38 30 21-32 mmol/L Anion Gap 2.0 6.0 3-11 mmol/L Blood Urea Nitrogen 17 15 7-18 mg/dl Creatinine 0.93 0.77 0.60-1.40 mg/dl Est Creatinine Clear Calc Drug Dose 85.5 103.2 ml/min Estimated GFR () 102.3 113.5 Estimated GFR (Non- 88.3 97.9 BUN/Creatinine Ratio 18.6 19.4 10-20 Random Glucose 94 157 70-99 mg/dl Calcium Level 8.5 8.5 8.5-10.1 mg/dl
[2017-01-05 15:05] VITALS: BP 128/80; PULSE 82; TEMP 37.1; O2SAT 93
--- NOTE | 2017-01-05 15:07 | HISTORY & PHYSICAL EXAMINATION ---
DATE OF ADMISSION: 01/04/2017 HISTORY OF PRESENT ILLNESS: This is a 61-year-old male well known to id status post lumbar decompression and fusion L2-3. He was discharged home and doing well but developed what sounds like postop ileus. Subsequently, admitted to the hospital for pain control, IV fluids and a more aggressive bowel regimen. PAST MEDICAL HISTORY: Essentially negative. PAST SURGICAL HISTORY: Includes the above-mentioned decompression and fusion at L2-3. PHYSICAL EXAMINATION: The incision is healing well. Has good strength to lower extremities. He is ambulating without difficulty. His abdomen is distended and tense. ASSESSMENT: Status post lumbar decompression and fusion with postop ileus. PLAN: At this time, he was admitted to the hospital, given IV fluids, and consult medicine for additional guidance and postoperative care.
[2017-01-05] MEDS ORDERED: NURSING VERBAL MED ORDER ONE (16:15)
[2017-01-05] MEDS: TRAMADOL HCL 50 MG TAB PO PRN (21:32)
[2017-01-05] MEDS: CYCLOBENZAPRINE HCL 10 MG TAB PO PRN (21:32)
[2017-01-05 23:00] VITALS: BP 145/77; PULSE 91; TEMP 36.7; O2SAT 95
[2017-01-06] MEDS: TRAMADOL HCL 50 MG TAB PO PRN ×2 (05:57→11:44)
[2017-01-06 06:37] LABS: BUN/CREATININE RATIO 22.2 (10-20); CALCIUM 8.8 mg/dl (8.5-10.1); CREATININE 0.8 mg/dl (0.60-1.40); POTASSIUM 4.3 mmol/L (3.5-5.1)
[2017-01-06 07:00] VITALS: BP 138/80; PULSE 79; TEMP 36.8; O2SAT 96
[2017-01-06 07:30] LABS: MEAN CELL VOLUME 91.6 fL (80-100); MEAN CORPUSCULAR HEMOGLOBIN 30.4 pg (25-34); MEAN CORPUSCULAR HGB CONC 33.1 g/dl (32-36); MEAN PLATELET VOLUME 11.1 fL (7.4-10.4); PLATELET COUNT 279 K/uL (130-400); RED BLOOD COUNT 3.82 M/uL (4.7-6.1); WHITE BLOOD COUNT 21.15 K/uL (4.8-10.8)
[2017-01-06] MEDS: POTASSIUM - ORDER AWAITING ACTION SCH (08:00)
[2017-01-06] MEDS: DOCUSATE SODIUM/SENNA 50/8.6MG TAB PO SCH (09:00)
[2017-01-06] MEDS: DOCUSATE SODIUM 100 MG CAP PO SCH (09:00)
[2017-01-06] MEDS: MULTIVITAMIN TAB PO SCH (09:13)
[2017-01-06] MEDS: VALSARTAN 160 MG TAB PO SCH (09:13)
[2017-01-06 10:20] VITALS: BP 138/80; PULSE 79; TEMP 36.8; O2SAT 96
--- NOTE | 2017-01-06 11:17 | Discharge Instructions ---
Discharge Instructions Date of Service Jan 06, 2017. Admission Reason for Admission: Post Op Complications Discharge Discharge Diagnosis / Problem: stenosis Discharge Goals Goal(s): Improve function Activity Recommendations Activity Limitations: per Instructions/Follow-up section . Instructions / Follow-Up Instructions / Follow-Up ACTIVITY RECOMMENDATIONS: SELF CARE INSTRUCTIONS AFTER THORACIC/LUMBAR FUSIONS 1. You may walk to your tolerance. It is good exercise for your legs and back. Expect some back and intermittent leg aches and pains. 2. You may perform "counter-top" level activities (make a sandwich, soledad with a project, etc.). 3. No bending or lifting of more than 10 pounds or back twisting of any nature (roll like a log when turning in bed). 4. You may ride in a car for 20-30 minutes at a time. No driving until after your first visit with your doctor. 5. Frequent changes of position and restricting sitting to 30 minutes at a time will help limit the amount of back spasms and stiffness you may experience. 6. You may discontinue the use of ambulatory aids (cane, crutches, etc.) once your strength and confidence allow. 7. You may dipper machine operator the shower and let water strike your incision when you arrive home at least once daily. Do not take a tub bath, sit in a hot tub or go into a swimming pool until after your first recheck in the office. SPECIAL CARE INSTRUCTIONS: VERY IMPORTANT TO READ AND REVIEW A. Your surgical incision has been closed with a cosmetic suture under the skin that will dissolve in about 6 weeks. In 14 days, you can use a pair of clean scissors and cut the suture that is left outside of the skin at the ends of your incision. 1. The small skin tapes can be removed 7 days after surgery if they have not fallen off by that point. 2. You may keep the wound open to air as much as possible to promote healing after post-op day number 5 unless told otherwise by your doctor. 3. If you think the wound looks like it is becoming infected (redness or worsening drainage) and/or you are experiencing fever, chill or worsening back pain and muscle spasms, contact the office so that we may evaluate you as soon as possible. B. Complications are uncommon, but please contact us if you have any signs or symptoms of: 1. wound infection (fever higher than 102.5 degrees F, redness, separation of wound, drainage, or increasing pain from the incision) 2. blood clots in legs (pain, swelling, redness and warmth in legs) 3. urinary tract infection (fever higher than 102.5 degrees F, burning upon urination or increased frequency of urination) 4. nerve problems (inability to walk on your toes or heels, numbness, loss of bowel or bladder control) 5. any other symptoms that concern you C. Please call the office at if you have any concerns or questions about your operation or recovery. D. No smoking! Smoking drastically decreases the chance of a solid fusion. E. Do not take any anti-inflammatory medications (Indocin, Advil, Motrin, Aspirin, Naprosyn, etc.) as these may inhibit the chance of a solid fusion. Tylenol is okay to take for pain. MANAGING PAIN AFTER SPINAL SURGERY 1. Narcotic medication is intended for short-term use and will be provided for surgical pain. Surgical pain usually lasts for a period of 4-6 weeks. Narcotic medication includes Percocet, Vicodin, Darvocet, Tylenol #3 or Lortab. 2. Longer-term pain is more appropriately treated with non-narcotic medication such as Tylenol ES. 3. Muscle spasm is not appropriately treated with narcotics. Muscle relaxers such as Soma, Flexeril or Skelaxin can be used along with Tylenol ES. 4. Remember that we all live with some "aches and pains". This is not unusual or uncommon after an injury or as we get older. a. Back pain is expected and may include muscle spasms for 4 to 6 weeks after surgery. The pain should gradually improve. If the pain worsens for no apparent reason, please contact the office. b. Intermittent leg pain may also be experienced and should not be concerned about unless it worsens for no apparent reason. If so, please contact the office. 5. We will provide appropriate medication within the normal guidelines of their prescribed use. We will also be very cautious and aware of potential abuse and extended duration of patients' medication needs. a. Pain medications are for your comfort and to assist with sleep and rest so that the tissue can heal. They are not provided in order to return to normal activity and should not be used through the day. To do so or worsening pain at night can result from ongoing tissue damage and development of tolerance to the prescribed medicine. 6. Please allow 2-3 days to process refills. Prescriptions will not be mailed but must be picked up at the office. FOLLOW UP VISIT: Keep your scheduled follow-up appointment. Any questions, please call the office at . Current Hospital Diet Patient's current hospital diet: Low Sodium Diet (2gm Na) Discharge Diet Recommended Diet: Regular Diet Pending Studies Studies pending at discharge: no Medical Emergencies . Who to Call and When: Medical Emergencies: If at any time you feel your situation is an emergency, please call 911 immediately. . Non-Emergent Contact Non-Emergency issues call your: Primary Care Provider . "Provider Documentation" section prepared by Nicolas Izaguirre. . VTE Core Measure Inpt VTE Proph given/why not?: Robbie Solis, SCD's
--- NOTE | 2017-01-06 11:26 | Progress Note ---
Internal Med Progress Note Date of Service: Jan 06, 2017. Provider Documentation: SUBJECTIVE: Patient is doing well. Had a BM yesterday, today. No nausea, no abdominal pain, bloating, vomiting, fever, chills. Tolerating soft diet well and eager to be discharged OBJECTIVE: Vital Signs-as noted below Exam: General-AAOX3, no distress Neck-Supple, NO JVD Lungs-AEBE, no wheezing, crackles Heart-S1, S2 normal, no murmurs Abdomen-Soft, non tender, non distended, BS present, no rigidity Extremities-No edema Back- S/P back surgery Lab data as noted below. ASSESSMENT & PLAN: POST-OP OPIOID-INDUCED CONSTIPATION /MILD ILEUS - Resolved Patient was discharged a day before post lumbar surgery and came back with constipation,abd pain, nausea and loss of appetite; s/p lumbar decomp/fusion by Dr. Zina CHANDLER-Low grade ileus -S/P MOM enema, Senakot, Milk of Magnesia- Had BM yesterday and today -Tolerating soft diet well -IVF -Encouraged to use alternate for narcotics for pain mx- tylenol and on IV dexamethasone per ortho LEUCOCYTOSIS -Worsening Today WBC went up to 20k, however, clinically no symptoms/signs of infection. -Needs to be monitored outpatient -If develops symptoms, counseled to call physician RECENT LUMBAR DECOMPRESSION/FUSION -POD #5 -defer mgmt to surgical team HTN -BP stable -cont losartan -monitor DVT PROPHYLAXIS -SCDs per surgery CODE STATUS -FULL CODE status DISPO Discharged by primary team today Agree with plan Vital Signs: Date Time Temp Pulse Resp B/P Pulse Ox O2 Delivery O2 Flow Rate FiO2 01/06/17 10:20 36.8 79 16 96 Room Air 01/06/17 09:19 Room Air 01/06/17 07:00 36.8 79 16 138/80 96 Room Air 01/05/17 23:00 36.7 91 16 145/77 95 Room Air 01/05/17 22:32 Room Air 01/05/17 17:00 Room Air 01/05/17 15:05 37.1 82 16 128/80 93 Room Air Lab Results: Results Past 24 Hours Test 01/06/17 05:35 Range/Units White Blood Count 21.15 4.8-10.8 K/uL Red Blood Count 3.82 4.7-6.1 M/uL Hemoglobin 11.6 14.0-18.0 g/dL Hematocrit 35.0 42-52 % Mean Corpuscular Volume 91.6 80-100 fL Mean Corpuscular Hemoglobin 30.4 25-34 pg Mean Corpuscular Hemoglobin Concent 33.1 32-36 g/dl RDW Standard Deviation 44.4 36.4-46.3 fL RDW Coefficient of Variation 13.3 11.5-14.5 % Platelet Count 279 130-400 K/uL Mean Platelet Volume 11.1 7.4-10.4 fL Sodium Level 140 136-145 mmol/L Potassium Level 4.3 3.5-5.1 mmol/L Chloride Level 106 98-107 mmol/L Carbon Dioxide Level 30 21-32 mmol/L Anion Gap 4.0 3-11 mmol/L Blood Urea Nitrogen 18 7-18 mg/dl Creatinine 0.80 0.60-1.40 mg/dl Est Creatinine Clear Calc Drug Dose 99.4 ml/min Estimated GFR () 111.7 Estimated GFR (Non- 96.4 BUN/Creatinine Ratio 22.2 10-20 Random Glucose 106 70-99 mg/dl Calcium Level 8.8 8.5-10.1 mg/dl
--- NOTE | 2017-01-06 11:38 | DISCHARGE SUMMARY ---
DATE OF DISCHARGE: 01/06/2017. PRINCIPAL DIAGNOSIS: Postoperative ileus. HOSPITAL COURSE FOLLOWS: On January 04 the patient was admitted, advance his bowel regimen and subsequently in the next 48 hours bowels began working appropriately, pain markedly improved, subsequently discharged home. Discharge orders and instructions can be found on the chart for further review.
== END 2017-01-06 12:16 | disposition home or self-care (01) ==
LOC: C.3E 16:10 → INTOOBSV 16:10 → UNDOADMIN 16:10
PROVIDERS: ADMIT Orthopaedic Surgery Orthopaedic Surgery of the Spine; ATTEND Orthopaedic Surgery Orthopaedic Surgery of the Spine
DX: K91.3 Postprocedural intestinal obstruction (principal); K59.03 Drug induced constipation; I10 Essential (primary) hypertension; D72.829 Elevated white blood cell count, unspecified; Z98.1 Arthrodesis status; Z86.711 Personal history of pulmonary embolism

== ENCOUNTER 2022-02-24 07:12 | Observation (INO) ==
--- NOTE | 2022-02-20 14:28 | Anesthesiology Consultation ---
Date of Service February 20, 2022 Assessment & Plan (1) Encounter for pre-operative examination: - COVID screening: Per assessment on 02/17: No known COVID-19 positive contacts or current COVID-19 related symptoms. Travel screen- returned from [place] 02/15 (v teddy family). Patient not vaccinated. Preop Covid test will be 5 adys after return from travel. Patient is planned for 23 hour obs. Due to possibility of having a roommate post-operatively as well as due to recent travel/not vaccinated- will order [facility]on for AM DOS. Order placed. - S/P Open Repair of the Right Inguinal Hernia with Mesh (05/31/2021): Grade 2 view, MAC#3, ETT 7.5 at [facility]. No issues noted per post-op anesthesia progress note. Chart Review Chart Review: Acceptable Risk for Surgery and Patient NOT seen in Pre Admission Testing History Surgery Operation Date: 02/24/22 08:10 Proposed Procedures p TURP (Transurethral Resection of the Prostate) - Garrett Aparicio MD Height/Weight Height: 5 ft 6 in Weight: 86.183 kg Allergies Allergy/AdvReac Type Severity Reaction Status Date / Time oxycodone Allergy Intermediate Hives,ILEUS Verified 02/17/22 11:58 morphine AdvReac Intermediate BOWEL Verified 02/17/22 11:58 BLOCKAGE Medications Home Medications Medication Instructions Recorded Confirmed Last Taken ascorbic acid (vitamin C) 500 mg 500 mg PO QAM 03/02/21 02/17/22 05/30/21 07:00 tablet (Vitamin C) ibuprofen 800 mg tablet 800 mg PO Q8H PRN 03/02/21 02/17/22 05/30/21 07:00 magnesium oxide 400 mg PO QAM 03/02/21 02/17/22 05/30/21 07:00 multivitamin 1 tab PO QAM 03/02/21 02/17/22 05/30/21 07:00 omeprazole 20 mg tablet,delayed 20 mg PO QAM 03/02/21 02/17/22 05/31/21 05:00 release valsartan 160 mg capsule 160 mg PO QAM 03/02/21 02/17/22 05/30/21 07:00 sildenafil 100 mg tablet 100 mg PO DAILY PRN #20 tab 01/23/22 02/17/22 Unknown sildenafil 100 mg tablet 100 mg PO DAILY PRN #20 tab 01/23/22 02/17/22 Unknown sildenafil 100 mg tablet 100 mg PO DAILY PRN #20 tab 01/23/22 02/17/22 Unknown Past Medical History Medical History BPH (benign prostatic hyperplasia) History of ileus s/p back surgery (2017) History of kidney stones History of pulmonary embolus (PE) Post-op (s/p elbow surgery 1975), no recent issues HTN (hypertension) Kidney stones Osteoarthritis Skin cancer Past Family History Family History Mother Hypertension Sister Hypertension Father Lung cancer Brother Hypertension Aunt Family hx of colon cancer Other COPD (chronic obstructive pulmonary disease) Cancer No family history of adverse response to anesthesia Past Surgical History Surgical History H/O elbow surgery Right x3, Left x2 H/O hernia repair Left inguinal H/O right inguinal hernia repair (05/31/21) Open Repair of the Right Inguinal Hernia with Mesh (05/31/2021): Grade 2 view, MAC#3, ETT 7.5 at [facility]. No issues noted per post-op anesthesia progress note. History of arthroscopy RT KNEE History of cataract surgery R/L History of colonoscopy History of cystoscopy UROLIFT History of cystoscopy FOR KIDNEY STONES History of esophagogastroduodenoscopy (EGD) History of Mohs micrographic surgery for skin cancer History of total knee replacement Right S/P epidural steroid injection S/P lumbar spinal fusion L2-L3 hardware (2016) Social History Smoking Status: Never smoker Do You Dip or Chew Tobacco: No Hx Alcohol Use: Yes Alcohol type: beer alcohol intake frequency: a few times a month Hx Substance Use: No substance use type: does not use Lab Results Anesthesia Preop Results Results Anesthesia Widget: WBC 9.27 K/uL (4.8-10.8) 02/20/22 Hgb 14.3 g/dL (14.0-18.0) 02/20/22 Hct 43.0 % (42-52) 02/20/22 Plt 257 K/uL (130-400) 02/20/22 Na 137 mmol/L (136-145) 02/20/22 K 4.3 mmol/L (3.5-5.1) 02/20/22 Cl 105 mmol/L (98-107) 02/20/22 CO2 26 mmol/L (21-32) 02/20/22 BUN 18 mg/dl (6-23) 02/20/22 Creat 0.80 mg/dl (0.6-1.4) 02/20/22 Glucose Level 78 mg/dl (70-99(Fasting)) 02/20/22 Urine Color Yellow 02/20/22 Urine Appearance Clear (Clear) 02/20/22 Urine pH 5.5 (4.5-7.5) 02/20/22 Urine Specific [place] 1.022 (1.000-1.030) 02/20/22 Urine Protein Negative (Negative) 02/20/22 Urine Glucose (UA) Negative (Negative) 02/20/22 Urine Ketones Negative (Negative) 02/20/22 Urine Blood Negative (Negative) 02/20/22 Urine Nitrite Negative (Negative) 02/20/22 Urine Bilirubin Negative (Negative) 02/20/22 Urine Urobilinogen Negative (Negative) 02/20/22 Urine Leukocyte Esterase Negative (Negative) 02/20/22 Testing Electrocardiogram Date: 03/11/21 Findings:+ NSR @ (85bpm) and + no change from (December 14, 2016 per cardio) Normal EKG per cardio. Chest X-Ray Date: 05/27/21 Findings: + NAD
[~2022-02-24 07:12] MED LIST changes: +CIPROFLOXACIN / D5W 400 MG/200 ML BAG IV SCH; -DVN/160 PO; +LR 15ML/HR IV SCH; -LYSINE PO; -MULT-506 PO; -POTASSIUM PO; -RXC5 PO; -VITACAP26 PO
[2022-02-24] MEDS ORDERED: ePHEDrine sulfate 50 MG/ML AMP IV PRN (08:28)
[2022-02-24] MEDS ORDERED: fentaNYL citrate 100 MCG/2 ML VIAL IV PRN (08:28)
[2022-02-24] MEDS ORDERED: ONDANSETRON INJ 2 MG/ML 2 ML VIAL IV PRN (08:28)
[2022-02-24] MEDS ORDERED: ATROPINE SULFATE 0.1 MG/ML 10ML SYR IV PRN (08:28)
[2022-02-24] MEDS ORDERED: DEXAMETHASONE SOD INJ 4 MG/ML VIAL ONE (08:34)
[2022-02-24] MEDS ORDERED: ONDANSETRON INJ 2 MG/ML 2 ML VIAL ONE (08:34)
[2022-02-24] MEDS ORDERED: PROPOFOL IV EMULSION 10 MG/ML 20 ML VIAL IV ONE (08:34)
[2022-02-24] MEDS ORDERED: LIDOCAINE 2% 2 ML VIAL/AMP(20MG/ML) INFIL ONE (08:34)
[2022-02-24] MEDS ORDERED: fentaNYL citrate 100 MCG/2 ML VIAL ONE (08:35)
[2022-02-24] MEDS ORDERED: MIDAZOLAM HCL 1 MG/ML 2ML VIAL ONE (08:35)
--- NOTE | 2022-02-24 08:57 | History & Physical Bridge Note ---
Date of Service February 24, 2022 History & Physical Bridge Note I have examined the patient, reviewed the History & Physical and in the interval since the performance of the History & Physical I have noted the following changes of clinical significance: no changes noted
--- NOTE | 2022-02-24 09:04 | History & Physical Report ---
Date of Service February 24, 2022 Assessment & Plan (1) Benign localized prostatic hyperplasia with lower urinary tract symptoms (LUTS): Plan: TURP for voiding dysfunction and BPH plan to stay overnight voiding trial in AM if all goes according to plan History of Present Illness Primary Care Provider: Charles Jon here for TURP to resolve urinary issues Allergies Allergy/AdvReac Type Severity Reaction Status Date / Time oxycodone Allergy Intermediate Hives,ILEUS Verified 02/24/22 08:08 morphine AdvReac Intermediate BOWEL Verified 02/24/22 08:08 BLOCKAGE Home Medications Medication Instructions Recorded Confirmed Type ascorbic acid (vitamin C) 500 mg 500 mg PO QAM 03/02/21 02/24/22 History tablet (Vitamin C) ibuprofen 800 mg tablet 800 mg PO Q8H PRN 03/02/21 02/24/22 History magnesium oxide 400 mg PO QAM 03/02/21 02/24/22 History multivitamin 1 tab PO QAM 03/02/21 02/24/22 History omeprazole 20 mg tablet,delayed 20 mg PO QAM 03/02/21 02/24/22 History release valsartan 160 mg capsule 160 mg PO QAM 03/02/21 02/24/22 History sildenafil 100 mg tablet 100 mg PO DAILY PRN #20 tab 01/23/22 02/24/22 Rx Past Med/Surg History Medical History BPH (benign prostatic hyperplasia) History of ileus s/p back surgery (2016) History of kidney stones History of pulmonary embolus (PE) Post-op (s/p elbow surgery 1975), no recent issues HTN (hypertension) Kidney stones Osteoarthritis Skin cancer Surgical History H/O elbow surgery Right x3, Left x2 H/O hernia repair Left inguinal H/O right inguinal hernia repair (05/31/21) Open Repair of the Right Inguinal Hernia with Mesh (05/31/2021): Grade 2 vie w, MAC#3, ETT 7.5 at [facility]. No issues noted per post-op anesthesia progress note. History of arthroscopy RT KNEE History of cataract surgery R/L History of colonoscopy History of cystoscopy UROLIFT History of cystoscopy FOR KIDNEY STONES History of esophagogastroduodenoscopy (EGD) History of Mohs micrographic surgery for skin cancer History of total knee replacement Right S/P epidural steroid injection S/P lumbar spinal fusion L2-L3 hardware (2017) Family History Mother Hypertension Sister Hypertension Father Lung cancer Brother Hypertension Aunt Family hx of colon cancer Other COPD (chronic obstructive pulmonary disease) Cancer No family history of adverse response to anesthesia Social History (Updated 02/17/22 @ 12:20 by Pippa Godwin RN) Smoking Status: Never smoker Second Hand Exposure: No; Do You Dip or Chew Tobacco: No; Hx Alcohol Use: Yes Alcohol type: beer Hx Substance Use: No Preferred Language: Greenlandic Communication Ability: Effective 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 Beliefs That Will Affect Care: None Current Living Situation: Spouse current occupational status: retired Other Information That Helps Us Care for You: No Feels Safe at Home: Yes Safety Concerns: Feels Safe At This Time Assistive Devices: Glasses Physical Exam Constitutional: well developed and well nourished Neck: neck nontender Respiratory: normal respiratory effort; no respiratory distress and does not use accessory muscles Cardiovascular: Rate/Rhythm: regular rate Vessels: radial pulses present Extremities: no edema Gastrointestinal (Abdomen): Inspection/Auscultation: abdomen normal to inspection Percussion/Palpation: abdomen soft; abdomen nontender and no guarding Musculoskeletal: Head/Neck/Chest: normocephalic and head atraumatic Extremities: extremities normal to inspection Skin: no rashes and no lesions Trauma: no evidence of skin trauma Neurologic: awake; not obtunded Speech / Cognition: normal speech Motor/Sensory: no tremor Psychiatric: Orientation: alert and oriented x 3 Genitourinary: no CVA tenderness Lymphatic: no lymphadenopathy Results & Data ([facility]) Vital Signs (Past 12 Hours) Vital Signs Temp Pulse Resp BP Pulse Ox 02/24/22 08:13 36.6 C 84 20 165/111 H 97
[2022-02-24] MEDS ORDERED: PHENYLEPHRINE HCL 10 MG/ML VIAL ONE (09:38)
[2022-02-24] MEDS ORDERED: KETOROLAC 30 MG/ML VIAL ONE (09:49)
--- NOTE | 2022-02-24 10:08 | Operative Report ---
PG Post Operative Report Pre & Post Diagnosis Operation Date: 02/24/22 09:05 Pre-Op Diagnosis: Benign Localized Prostatic Hyperplasia with Lower Post-Op Diagnosis: Benign Localized Prostatic Hyperplasia with Lower I identified the patient and participated in the time-out.: Yes Procedure Operation Date: 02/24/22 09:05 Actual Procedures p Cystoscopy, Transurethral Resection of the Prostate(Not Applicable) - Garrett Aparicio MD Surgeon Garrett Aparicio MD Chief Minister none Estimated Blood Loss 0 Findings Consistent with Post-Op Diagnosis Specimens none Description of Procedure The patient was identified in the preoperative holding area, appropriate informed consents were reviewed and completed and the patient was transferred to the operative suite. Upon arrival, appropriate antibiotics and anesthesia were administered and the patient was placed in dorsal lithotomy position and prepped and draped in sterile fashion. To begin the case a 26 Vietnamese cystoscope with 30 degree lens and visual obturator was passed per urethra. Inspection revealed a healthy-appearing urethra without strictures. His prostate is moderately enlarged and is notably status post UroLift. The UroLift actually does appear to have created a nice anterior channel, however he has a high bladder neck and a bit of redundant tissue on the right side. I inspected his entire bladder and identified no mucosal abnormalities with his ureteral orifices being in orthotopic position. I exchanged the visual obturator for a resecting element using a button electrode. I began to incise the bladder neck at 5 and 7:00. I identified the 2 UroLift devices that were placed closest to the bladder neck and I resected the stitch between the 2 clips on each side and extracted the clips that were on the urethral side. We then proceeded to open the bladder neck further and flatten the area between my initial 2 incisions. This addressed the high bladder neck. I then resected the residual lateral lobe tissue on both the right and the left until he had a widely patent prostatic fossa. Hemostasis was excellent. I left the bladder full and withdrew the scope. A 22 Vietnamese catheter was placed without incident and the case was concluded. He was taken to the PACU in stable condition. There were no complications. I attest to the content of the Intraoperative Record and any orders documented therein. Any exceptions are noted below.
--- NOTE | 2022-02-24 10:41 | Anesthesiology Progress Note ---
Date of Service February 24, 2022 Anesthesia Post Procedure Vital Signs Vital Signs: Temp Pulse Pulse Resp BP Pulse Ox 02/24/22 10:25 85 17 141/92 H 96 02/24/22 10:15 89 17 142/100 H 95 02/24/22 10:05 90 17 152/98 H 97 02/24/22 09:55 97.7 F 95 H 13 157/100 H 98 02/24/22 08:13 97.9 F 84 20 165/111 H 97 Pain Intensity Bilateral Lower Back: Pain Intensity: 7 Transfer of Care Handoff Completed per policy Notes Mental Status: alert / awake / arousable and participated in evaluation Patient Amnestic to Procedure: Yes Nausea / Vomiting: adequately controlled Pain: adequately controlled Airway Patency, RR, SpO2: stable & adequate BP & HR: stable & adequate Hydration State: stable & adequate Anesthetic Complications: no major complications apparent and Pt Satisfied with anesthetic care
[2022-02-24] MEDS ORDERED: ACETAMINOPHEN 325 MG TAB PO PRN (11:24)
[2022-02-24] MEDS ORDERED: IBUPROFEN 800 MG TAB PO PRN (11:24)
[2022-02-24] MEDS: LACTATED RINGER'S 1,000 ML IV SCH (12:57)
[2022-02-24] MEDS ORDERED: POLYETHYLENE (MIRALAX) 17 GM PACK PO PRN (15:44)
[2022-02-24] MEDS: CIPROFLOXACIN / D5W 400 MG/200 ML BAG IV SCH (20:29)
[2022-02-25] MEDS: LACTATED RINGER'S 1,000 ML IV SCH (06:41)
[2022-02-25] MEDS: CIPROFLOXACIN / D5W 400 MG/200 ML BAG IV SCH (07:47)
--- NOTE | 2022-02-25 08:45 | Urology Progress Note ---
Date of Service February 25, 2022 Assessment & Plan (1) Benign localized prostatic hyperplasia with lower urinary tract symptoms (LUTS): Plan: Voiding trial this morning Discharge home Admission and Anticipated Discharge Date Admission Date: February 24, 2022 Subjective No issues overnight Urine clear Tolerating diet Had a bowel movement this morning Physical Exam Physical Exam: Comfortable appearing Urine clear Results & Data ([facility]) Vital Signs (Past 12 Hours) Vital Signs Temp Pulse Resp BP Pulse Ox 02/25/22 03:38 36.4 C L 86 17 113/79 96 02/24/22 22:50 36.6 C 89 18 108/68 95 PG Care Time/CCT Total # of Minutes Spent Total Time Spent with Patient: Total time spent is greater than 50% in coordination of care (as documented) at patient's floor/unit and/or counseling patient: Coding Level of Care Code None Diagnoses Benign localized prostatic hyperplasia with lower urinary tract symptoms (LUTS) N40.1
--- NOTE | 2022-02-25 08:46 | Discharge Summary ---
Date of Service February 25, 2022 Admission HPI Per Admitting Provider here for TURP to resolve urinary issues Principal Diagnosis BPH Discharge Data Allergies Allergy/AdvReac Type Severity Reaction Status Date / Time oxycodone Allergy Intermediate Hives,ILEUS Verified 02/24/22 08:08 morphine AdvReac Intermediate BOWEL Verified 02/24/22 08:08 BLOCKAGE Procedures Performed Operation Date: 02/24/22 09:05 Actual Procedures p Cystoscopy, Transurethral Resection of the Prostate(Not Applicable) - Garrett Aparicio MD Hospital Course (1) Benign localized prostatic hyperplasia with lower urinary tract symptoms (GAB TS): Admitted for TURP - tolerated procedure very well - progressed appropriately overnight - passed a voiding trial on the morning of POD#1 - d/c home in stable condition Total Time Total Time Spent Total Time Spent (In Minutes): 15 Discharge Plan Discharge Items Patient Disposition: Home - Self-Care Reason For Visit: Benign Localized Prostatic Hyperplasia with Lower Discharge Diagnosis: BPH Activity: Resume your previous activity Lifting: Gradually increase as tolerated Bathing: No limitations Sexual Activity: When tolerated Exercise/Sports: Gradually increase as tolerated Driving/Machine Use: No limitations Non-emergency contact: Urologist Call non-emergency contact if: you have any medication questions, your pain is worsening, you have a fever and your temperature is above 101.5 Follow-up/Referrals: Charles Jon M.D. [Primary Care Provider] - Diet: Regular Addtl Attending Provider Instructions: Please take all medications as prescribed and keep follow-ups as scheduled. Please call our office at [phone] with any questions, concerns or need to reschedule appointments for any reason. We are happy to assist you. While catheter is in place, please wash with warm soapy water and a fresh washcloth twice a day with mild bar soap (Dove, Dial, etc.). Your nursing visit appointment to have your catheter removed should already be made, if you have any question regarding this, please call our office. Complete antibiotics as prescribed, if indicated. It is okay to take AZO (available over the counter) as needed for a few days to relieve burning with urination. This may cause your urine or feces to turn an orangish-color. This is expected. The only exception is if you have been prescribed Pyridium (phenazopyridine), this is the same medication and should not take AZO be taken in addition to prescription version. Please do not drive, drink alcohol or operate machinery while taking prescription pain medication. We recommend continuing a stool softener (i.e. Colace) to prevent constipation/straining for at least two weeks after your procedure. Some blood is to be expected in your urine as you heal, you may even see recurrences of blood in your urine for up to 4-6 months after your procedure. Drink plenty of fluids, avoid sexual or strenuous exercise and do not lift >25 pounds until your follow-up. Call [facility] at [phone] promptly if you experience: Fever of 101F or greater Pain thats not controlled with medicine Trouble urinating or inability to urinate Dark, bloody urine for more than 12 hours Pending Studies at Discharge: No Stand-Alone Forms: My [employer], Smoking Cessation Medications and DC Order Prescriptions: New ciprofloxacin HCl [Cipro] 500 mg tablet 500 mg PO BID Qty: 6 RF: 0 Continued sildenafil 100 mg tablet 100 mg PO DAILY PRN (Reason: sexual activity) Qty: 20 RF: 11 multivitamin Tablet 1 tab PO QAM RF: 0 valsartan 160 mg Capsule 160 mg PO QAM RF: 0 ibuprofen 800 mg Tablet 800 mg PO Q8H PRN (Reason: Pain) RF: 0 ascorbic acid (vitamin C) [Vitamin C] 500 mg Tablet 500 mg PO QAM RF: 0 omeprazole 20 mg Tablet,Delayed Release (Dr/Ec) 20 mg PO QAM RF: 0 magnesium oxide 400 mg magnesium Capsule 400 mg PO QAM RF: 0 Discharge Orders: Discharge Order (Routine); Ordered 02/25/22 Ordered By: Garrett Aparicio Admission Data Admit Date/Time: 02/24/22 10:06 Attending Provider: Garrett Aparicio Admit Provider: Garrett Aparicio Primary Care Provider: Charles Jon Coding Level of Care Code D/C DAY MANAGEMENT <30 MINS Diagnoses Benign localized prostatic hyperplasia with lower urinary tract symptoms (LUTS) N40.1
[2022-02-25] MEDS ORDERED: ASCORBIC ACID 500 MG TAB PO SCH (09:00)
[2022-02-25] MEDS ORDERED: VALSARTAN 80 MG TAB PO SCH (09:00)
[2022-02-25] MEDS ORDERED: PANTOprazole 40 MG TAB PO SCH (09:00)
[2022-02-25] MEDS ORDERED: MAGNESIUM OXIDE 400 MG TAB PO SCH (09:00)
== END 2022-02-25 10:43 | disposition home or self-care (01) ==
LOC: ASU 07:12 → 3N 07:12

== ENCOUNTER 2024-05-30 19:37 | Inpatient (IN) ==
[2024-05-30 20:28] LABS: Basophils # (auto) 0.06 K/uL (0.00-0.20); Basophils % (auto) 0.5 %; Eosinophils # (auto) 0.23 K/uL (0.00-0.50); Eosinophils % (auto) 1.8 %; Hematocrit (blood only) 40.7 % (42.0-52.0); Immature Granulocytes # (auto) 0.08 K/uL (0.01-0.20); Immature Granulocytes % (auto) 0.6 %; Lymphocytes # (auto) 2.47 K/uL (1.20-3.40); Lymphocytes % (auto) 18.9 %; Mean Corpuscular Hemoglobin 30.4 pg (25.0-34.0); Mean Corpuscular Hgb Conc 34.4 g/dL (32.0-36.0); Mean Corpuscular Volume 88.5 fL (80.0-100.0); Mean Platelet Volume 11.4 fL (9.4-12.4); Monocytes # (auto) 1.05 K/uL (0.11-0.59); Neutrophils # (auto) 9.17 K/uL (1.40-6.50); Neutrophils % (auto) 70.2 %; Platelet Count 234 K/uL (130-400); RDW Coefficient of Variation 13.3 % (11.5-14.5); RDW Standard Deviation 43.4 fL (36.4-46.3); White Blood Count 13.06 K/ul (4.8-10.8)
[2024-05-30 21:48] LABS: Alanine Aminotransferase 17 U/L (7-52); Albumin Globulin Ratio 1.6 (0.9-2); Albumin Level 4.2 gm/dl (3.4-5.0); Alkaline Phosphatase 66 U/L (34-104); Anion Gap 7 (3-11); Aspartate Aminotransferase 16 U/L (13-39); BUN Creatinine Ratio 16.7 (10-20); Bilirubin,Total 0.3 mg/dl (0.2-1.0); Blood Urea Nitrogen 18 mg/dl (6-23); Carbon Dioxide 28 mmol/L (21-32); Chloride 103 mmol/L (98-107); Est GFR (African American) 80.7 ml/min; Est GFR (Non-African American) 69.7 ml/min; Globulin 2.7 gm/dl (2.5-4.0); Glucose 124 mg/dl (70-99(Fasting)); Potassium 3.9 mmol/L (3.5-5.1); Sodium 138 mmol/L (136-145); Total Protein 6.9 gm/dl (6.0-8.3)
[2024-05-30] MEDS: fentaNYL citrate PF 100 MCG/2 ML VIAL IV PRN (22:02)
[2024-05-30] MEDS: dexAMETHasone**PF** 10 MG/ML VIAL IV ONE (22:02)
[2024-05-30] MEDS: ONDANSETRON INJ 2 MG/ML 2 ML VIAL IV STA (22:02)
[2024-05-30 22:03] LABS: Creatine Kinase 145 U/L (30-223)
--- NOTE | 2024-05-31 00:55 | Magnetic Resonance Report ---
Exam(s): MRI L SPINE Without Contrast EXAM: MR Lumbar Spine Without Intravenous Contrast CLINICAL HISTORY: Reason for exam: B leg weakness. TECHNIQUE: Magnetic resonance images of the lumbar spine without intravenous contrast in multiple planes. COMPARISON: No relevant prior studies available. FINDINGS: Vertebrae: There are 5 lumbar type vertebral bodies with a mild generalized curved to the left and shallow lumbar lordosis. There is normal vertebral body height and alignment. Patient is status post lateral, posterior and inner body fusion of L2 and L3 with transpedicular screws and connecting rods in place. No acute fracture. There is moderate bilateral sacroiliac joint arthropathy. Spinal cord: Unremarkable. Normal signal. Soft tissues: Moderate atrophy of the iliopsoas, paraspinous intraspinous musculature. The aorta and IVC flow voids are intact. Left renal cyst. Otherwise the visualized kidneys are unremarkable. DISCS/SPINAL CANAL/NEURAL FORAMINA: L1-L2: There is mild disc degeneration with annular disc bulge flattening the ventral thecal sac with disc extending to the neural foramina without impingement or significant stenosis. L2-L3: There is fusion across the segments with tiny residual annular disc bulge flattening the ventral thecal sac. There is marginal osteophyte extending to the neural foramina causing mild bilateral stenosis. L3-L4: There is mild disc degeneration with annular disc bulge causing a mild left subarticular recess stenosis with disc extending to the neural foramina causing moderate right and mild left stenosis with mild impingement of the right L3 nerve or ganglia. L4-L5: There is mild disc degeneration with annular disc bulge causing a severe subarticular recess stenosis with impingement of the transiting L5 nerve roots and critical spinal canal stenosis with thecal sac measuring 0.2 cm. There is disc and osteophyte extending to the neural foramina causing a moderate right and severe left stenosis with impingement of the bilateral L4 nerve root ganglia. L5-S1: The intervertebral disc is normal with marginal osteophyte extending to the right neural foramina causing a mild stenosis without evidence of neural impingement. IMPRESSION: 1. Mild disc degeneration at L1-L2, L3-4 and L4-5 flattening the ventral thecal sac and causing a mild subarticular recess stenosis at L3-4 and severe subarticular recess stenosis at L4-5 with impingement of the transiting L5 nerve roots. 2. There is a critical spinal canal stenosis at L4-5. 3. There is a moderate right and mild left L3-4, moderate right and severe left L4-5 and mild right L5-S1 neural foraminal stenosis with impingement of the right L3 and bilateral L4 nerve or ganglia. 4. No evidence of fracture, infection, tumor or arachnoiditis. Electronically signed by: Patricia Leno MD 05/31/24 00:54 AM
--- NOTE | 2024-05-31 02:55 | History & Physical Report ---
"Date of Service May 31, 2024 Assessment & Plan (1) Spinal stenosis of lumbar region: (2) HTN (hypertension): (3) Benign localized prostatic hyperplasia with lower urinary tract symptoms (LUTS): Plan Spinal Stenosis | History of L2-L3 Spinal Fusion -Significant worsening of symptoms in the past 24 hours -Lumbar spine MRI shows critical spinal stenosis at L4-L5, moderate right and severe left L4-L ad mild right L5-S1 neural foraminal stenosis with impingement of right L3 and bilateral L4 nerve -Scheduled for July operation with Dr. Izaguirre, will consult ortho spine but may not be able to evaluate this weekend -Received IV Dexamethasone in ED. continue with IV steroids -Tylenol, IV Dilaudid PRN for pain control -Will add cyclobenzaprine for muscle spasm Hypertension -Continue home medications, med rec not completed at time of admission Admit to med/surg Diet: NPO while awaiting evaluation VTE Prophylaxis: Heparin Code Status: Full code History of Present Illness Primary Care Provider: Charlesmiki Jon Tom Christianson is a 69 year-old male who with past medical history significant for BPH, history of prior PE, HTN, OA, kidney stones, and L2-L3 lumbar spinal fusion (2016) who presented to the hospital due to concern of sudden worsening back pain. He currently has a surgery scheduled for July with Dr. Izaguirre. Notes that on 05/30 he had a sudden worsening of his lumbar back pain with radiculopathy after doing minimal activity- states he was doing some work around the house on ladders but no heavy lifting. Had worsening left sided pain above his posterior left hip, has some numbness/tingling down the back of both buttocks towards his knees (at baseline was only experiencing this down his right posterior thigh). He tried going to the chiropractor the same day to readjust his hip which has helped in the past, but did not have relief. States he was told by Dr. Izaguirre to call if he notices any changes and after calling the on-call line this evening, he was instructed to come to the ED. He states he has been taking Tylenol daily for pain without relief, states he has a history of impaired renal function so was told to avoid NSAIDs. Rates his pain currently at 6/10, is tolerable with laying flat but significant pain with any movement. Notes he had some difficulty with sitting up to urinate due to the pain, but denies loss of control of bowel/bladder control nor any groin numbness. ED Course: -CBC, CMP -MRI Lumbar spine -Dexamethasone Allergies Allergy/AdvReac Type Severity Reaction Status Date / Time oxycodone Allergy Intermediate Hives,ILEUS Verified 08/15/22 06:07 morphine AdvReac Intermediate BOWEL Verified 08/15/22 06:07 BLOCKAGE Home Medications Medication Instructions Recorded Confirmed Type ascorbic acid (vitamin C) 500 mg 500 mg PO QAM 03/02/21 08/15/22 History tablet (Vitamin C) ibuprofen 800 mg tablet 800 mg PO Q8H PRN Pain 03/02/21 08/15/22 History magnesium oxide 400 mg PO QAM 03/02/21 08/15/22 History multivitamin 1 tab PO QAM 03/02/21 08/15/22 History omeprazole 20 mg tablet,delayed 20 mg PO QAM 03/02/21 08/15/22 History release valsartan 160 mg capsule 160 mg PO QAM 03/02/21 08/15/22 History sildenafil 100 mg tablet 100 mg PO DAILY PRN sexual 01/23/22 08/15/22 Rx activity #20 tabs potassium citrate 10 mEq (1,080 10 meq PO BID 90 days #180 tabs 08/03/22 08/15/22 Rx mg) tablet,extended release ciprofloxacin HCl 500 mg tablet 500 mg PO BID #6 tabs 08/15/22 Rx (Cipro) Past Med/Surg History Problem List (Updated 06/01/24 @ 09:27 by Lazaro Lion MD) Spinal stenosis of lumbar region Encounter for pre-operative examination Constipation Arthritis Benign localized prostatic hyperplasia with lower urinary tract symptoms (LUTS) Obesity Groin pain Groin swelling Right inguinal hernia Left ureteral calculus Urgency of micturition Erectile dysfunction Hydrocele Bladder calculus Skin cancer Osteoarthritis (Chronic) Medical History (Updated 06/01/24 @ 09:27 by Lazaro Lion MD) Acute lumbar radiculopathy History of pulmonary embolus (PE) Post-op (s/p elbow surgery 1975), no recent issues HTN (hypertension) Kidney stones History of kidney stones Encounter for pre-operative examination History of ileus s/p back surgery (2016) BPH (benign prostatic hyperplasia) Surgical History History of transurethral resection of prostate 02/2022 History of cystoscopy FOR KIDNEY STONES H/O right inguinal hernia repair (05/31/21) Open Repair of the Right Inguinal Hernia with Mesh (05/31/2021): Grade 2 view, MAC#3, ETT 7.5 at [facility]. No issues noted per post-op anesthesia progress note. History of esophagogastroduodenoscopy (EGD) History of colonoscopy History of arthroscopy RT KNEE History of total knee replacement Right S/P epidural steroid injection History of cystoscopy UROLIFT History of cataract surgery R/L History of Mohs micrographic surgery for skin cancer S/P lumbar spinal fusion L2-L3 hardware (2016) H/O elbow surgery Right x3, Left x2 H/O hernia repair Left inguinal Family History Mother Hypertension Sister Hypertension Father Lung cancer Brother Hypertension Aunt Family hx of colon cancer Other COPD (chronic obstructive pulmonary disease) Cancer No family history of adverse response to anesthesia Social History Smoking Status: Never smoker Second Hand Exposure: No; Do You Dip or Chew Tobacco: No; Tobacco Cessation Education Requested by Patient: No Hx Alcohol Use: Yes Alcohol type: beer Hx Substance Use: No Preferred Language: Chinese Communication Ability: Effective Oil Paint Shader Required: No Beliefs That Will Affect Care: None Current Living Situation: Spouse current occupational status: retired Other Information That Helps Us Care for You: No Feels Safe at Home: Yes Safety Concerns: Feels Safe At This Time Assistive Devices: Glasses Review of Systems Review of Systems: As per above Physical Exam Constitutional: WD/WN, vitals as above Eyes: + anicteric sclerae; no conjunctival abn ormality ENMT: Ears: no external ear abnormality Nose: no external nose abnormality Moist mucous membranes Respiratory: normal respiratory effort, lungs clear to auscultation Cardiovascular: Rate/Rhythm: regular rate and regular rhythm No lower extremity edema Gastrointestinal (Abdomen): Abdomen tender to palpation, no masses appreciated and abdomen soft Musculoskeletal: Significant tenderness, hypertonicity at left sided lumbar paraspinal musculature. Sensation intact at bilateral lower extremities. Skin: no rashes, warm and dry Psychiatric: A+Ox3, euthymic affect Results & Data Results & Data Vital Signs (Past 12 Hours) Vital Signs Temp Pulse Pulse Resp BP BP Pulse Ox 05/30/24 23:08 86 05/30/24 23:00 94 H 19 145/89 H 94 05/30/24 21:38 86 18 142/88 H 94 05/30/24 19:48 36.8 C 92 H 20 175/96 H 94 O2 Del Method 05/30/24 23:08 05/30/24 23:00 Room Air 05/30/24 21:38 Room Air 05/30/24 19:48 Room Air Diagnostic Findings Lumbar Spine MRI 05/30/24 21:43 Exam(s): MRI L SPINE Without Contrast EXAM: MR Lumbar Spine Without Intravenous Contrast CLINICAL HISTORY: Reason for exam: B leg weakness. TECHNIQUE: Magnetic resonance images of the lumbar spine without intravenous contrast in multiple planes. COMPARISON: No relevant prior studies available. FINDINGS: Vertebrae: There are 5 lumbar type vertebral bodies with a mild generalized curved to the left and shallow lumbar lordosis. There is normal vertebral body height and alignment. Patient is status post lateral, posterior and inner body fusion of L2 and L3 with transpedicular screws and connecting rods in place. No acute fracture. There is moderate bilateral sacroiliac joint arthropathy. Spinal cord: Unremarkable. Normal signal. Soft tissues: Moderate atrophy of the iliopsoas, paraspinous intraspinous musculature. The aorta and IVC flow voids are intact. Left renal cyst. Otherwise the visualized kidneys are unremarkable. DISCS/SPINAL CANAL/NEURAL FORAMINA: L1-L2: There is mild disc degeneration with annular disc bulge flattening the ventral thecal sac with disc extending to the neural foramina without impingement or significant stenosis. L2-L3: There is fusion across the segments with tiny residual annular disc bulge flattening the ventral thecal sac. There is marginal osteophyte extending to the neural foramina causing mild bilateral stenosis. L3-L4: There is mild disc degeneration with annular disc bulge causing a mild left subarticular recess stenosis with disc extending to the neural foramina causing moderate right and mild left stenosis with mild impingement of the right L3 nerve or ganglia. L4-L5: There is mild disc degeneration with annular disc bulge causing a severe subarticular recess stenosis with impingement of the transiting L5 nerve roots and critical spinal canal stenosis with thecal sac measuring 0.2 cm. There is disc and osteophyte extending to the neural foramina causing a moderate right and severe left stenosis with impingement of the bilateral L4 nerve root ganglia. L5-S1: The intervertebral disc is normal with marginal osteophyte extending to the right neural foramina causing a mild stenosis without evidence of neural impingement. IMPRESSION: 1. Mild disc degeneration at L1-L2, L3-4 and L4-5 flattening the ventral thecal sac and causing a mild subarticular recess stenosis at L3-4 and severe subarticular recess stenosis at L4-5 with impingement of the transiting L5 nerve roots. 2. There is a critical spinal canal stenosis at L4-5. 3. There is a moderate right and mild left L3-4, moderate right and severe left L4-5 and mild right L5-S1 neural foraminal stenosis with impingement of the right L3 and bilateral L4 nerve or ganglia. 4. No evidence of fracture, infection, tumor or arachnoiditis. Electronically signed by: Patricia Leon MD 05/31/24 00:54 AM Supervising Physician Co-Signing Physician Notes Attending addendum: I have physically seen this patient, have supervised the medical residents activities, and agree with the H&P unless as otherwise noted. Assessment and Plan: Intractable low back pain/lumbar spinal stenosis/history of L2-L3 spinal fusion- MRI lumbar spine abnormal as noted Given dexamethasone 10 mg IV from the ED Continue 6 mg IV every morning Consult with Dr. Izaguirre With future plans for operation in July Adding cyclobenzaprine for muscle spasm Hypertension- Continue valsartan Resident Activity Tracking Resident Involvement: Resident Care Provided Care Provided: Adult [facility]"
--- NOTE | 2024-05-31 03:19 | Emergency Department Note ---
History of Present Illness General Chief complaint: Back Injury/Pain Stated complaint: BACK PAIN Time Seen by Provider: 05/30/24 21:26 History of Present Illness Maximum Pain Intensity: 4 This 69-year-old male that follows with Dr. Izaguirre presents ER complaining of severe worsening low back pain with bilateral leg tingling. Patient denies loss of bowel bladder control, saddle anesthesia, fever, chills, leg weakness, IV drug abuse. He is scheduled later this year for back surgery. He called Dr. Izaguirre's office and was advised to go to the ER. Home Medications Medication Instructions Recorded Confirmed Type ascorbic acid (vitamin C) 500 mg 500 mg PO QAM 03/02/21 08/15/22 History tablet (Vitamin C) ibuprofen 800 mg tablet 800 mg PO Q8H PRN Pain 03/02/21 08/15/22 History magnesium oxide 400 mg PO QAM 03/02/21 08/15/22 History multivitamin 1 tab PO QAM 03/02/21 08/15/22 History omeprazole 20 mg tablet,delayed 20 mg PO QAM 03/02/21 08/15/22 History release valsartan 160 mg capsule 160 mg PO QAM 03/02/21 08/15/22 History sildenafil 100 mg tablet 100 mg PO DAILY PRN sexual 01/23/22 08/15/22 Rx activity #20 tabs potassium citrate 10 mEq (1,080 10 meq PO BID 90 days #180 tabs 08/03/22 08/15/22 Rx mg) tablet,extended release ciprofloxacin HCl 500 mg tablet 500 mg PO BID #6 tabs 08/15/22 Rx (Cipro) Allergies Allergy/AdvReac Type Severity Reaction Status Date / Time oxycodone Allergy Intermediate Hives,ILEUS Verified 08/15/22 06:07 morphine AdvReac Intermediate BOWEL Verified 08/15/22 06:07 BLOCKAGE Past Med/Surg History Problem List (Updated 05/31/24 @ 03:19 by Klaudia Zaldivar PA-C) Acute lumbar radiculopathy (Acute) Spinal stenosis of lumbar region Encounter for pre-operative examination Constipation Arthritis Benign localized prostatic hyperplasia with lower urinary tract symptoms (LUTS) Obesity Groin pain Groin swelling Right inguinal hernia Left ureteral calculus Urgency of micturition Erectile dysfunction Hydrocele Bladder calculus Skin cancer HTN (hypertension) (Chronic) Osteoarthritis (Chronic) Medical History Kidney stones History of kidney stones Encounter for pre-operative examination History of ileus s/p back surgery (2016) BPH (benign prostatic hyperplasia) Surgical History History of transurethral resection of prostate 02/2022 History of cystoscopy FOR KIDNEY STONES H/O right inguinal hernia repair (05/31/21) Open Repair of the Right Inguinal Hernia with Mesh (05/31/2021): Grade 2 view, MAC#3, ETT 7.5 at [facility]. No issues noted per post-op anesthesia progress note. History of esophagogastroduodenoscopy (EGD) History of colonoscopy History of arthroscopy RT KNEE History of total knee replacement Right S/P epidural steroid injection History of cystoscopy UROLIFT History of cataract surgery R/L History of Mohs micrographic surgery for skin cancer S/P lumbar spinal fusion L2-L3 hardware (2016) H/O elbow surgery Right x3, Left x2 H/O hernia repair Left inguinal Family History Mother Hypertension Sister Hypertension Father Lung cancer Brother Hypertension Aunt Family hx of colon cancer Other COPD (chronic obstructive pulmonary disease) Cancer No family history of adverse response to anesthesia Social History Smoking Status: Never smoker Second Hand Exposure: No; Do You Dip or Chew Tobacco: No; Tobacco Cessation Education Requested by Patient: No Hx Alcohol Use: Yes Alcohol type: beer Hx Substance Use: No Preferred Language: Bolivian Communication Ability: Effective Bulk Folder Required: No Beliefs That Will Affect Care: None Current Living Situation: Spouse current occupational status: retired Other Information That Helps Us Care for You: No Feels Safe at Home: Yes Safety Concerns: Feels Safe At This Time Assistive Devices: Glasses Review of Systems A total of 10 systems reviewed and were otherwise negative Physical Exam Vital Signs Vital Signs - 24 hr 05/30/24 19:48 05/30/24 21:38 05/30/24 23:00 Temperature 36.8 C Temperature Source Temporal Artery Scan Pulse Rate 92 H Pulse Rate [Apical] 86 94 H Pulse Rhythm Regular Pulse Strength Normal Respiratory Rate 20 18 19 Respiratory Effort / Characteristics Non-Labored Non-Labored Spontaneous Non-Labored Spontaneous Respiratory Depth Normal Normal Normal Respiratory Pattern Regular Regular Blood Pressure 175/96 H Blood Pressure [Right Arm] 142/88 H 145/89 H Blood Pressure Mean 122 Blood Pressure Mean [Right Arm] 106 107 Pulse Oximetry 94 94 94 Oxygen Delivery Method Room Air Room Air Room Air Sepsis Recent Fever Within 48 Hours No Sepsis New/Unexplained Change in Mental Status N/A Sepsis Action Taken by Nursing No Action Required 05/30/24 23:08 Temperature Temperature Source Pulse Rate 86 Pulse Rate [Apical] Pulse Rhythm Pulse Strength Respiratory Rate Respiratory Effort / Characteristics Respiratory Depth Respiratory Pattern Blood Pressure Blood Pressure [Right Arm] Blood Pressure Mean Blood Pressure Mean [Right Arm] Pulse Oximetry Oxygen Delivery Method Sepsis Recent Fever Within 48 Hours Sepsis New/Unexplained Change in Mental Status Sepsis Action Taken by Nursing VITALS: Vitals are noted on the nurse's note and reviewed by myself. Vital signs stable. GENERAL: Pleasant gentleman, in no acute distress, nondiaphoretic, well- developed well-nourished. SKIN: Capillary reflex less than 2 seconds. HEENT: Normocephalic. PERRLA. EOMI. Nares patent. Mucous membranes moist. Neck is supple without nuchal rigidity. HEART: Regular rate and rhythm LUNGS: Clear to auscultation bilaterally without wheezes, rales or rhonchi. No retractions or accessory muscle use. ABDOMEN: Positive bowel sounds x 4. Normal tympanic percussion. Soft, nontender, without masses or organomegaly. Tinoco sign negative. No guarding or rebound tenderness. no CVA tenderness MUSCULOSKELETAL: No gross musculoskeletal defects. No thoracic or lumbar tenderness. Bilateral straight leg raise positive. Patient can plantarflex and dorsiflex. He can ambulate. NEURO: Patient was alert and oriented to person place and time. No focal neurological deficits. Course Administered Medications Acetaminophen (Acetaminophen 500 Mg Tab) 1,000 mg PO Q8H [facility] Stop: 06/30/24 17:59 Last Admin: 06/01/24 01:40 Dose: 1,000 mg Documented By: Admin: 05/31/24 18:05 Dose: 1,000 mg Documented By: HRB Cyclobenzaprine HCl (Cyclobenzaprine Hcl 10 Mg Tab) 10 mg PO Q8H PRN PRN Reason: Muscle Spasm Stop: 06/30/24 05:03 Last Admin: 06/01/24 06:00 Dose: 10 mg Documented By: Admin: 05/31/24 16:52 Dose: 10 mg Documented By: Admin: 05/31/24 08:11 Dose: 10 mg Documented By: HRB Docusate Sodium (Docusate Sodium 100 Mg Cap) 100 mg PO BID PRN PRN Reason: Constipation Stop: 06/30/24 10:12 Last Admin: 05/31/24 16:52 Dose: 100 mg Documented By: HRB Heparin Sodium (Porcine) (Heparin Sod 5,000 Unit/0.5 Ml Vial) 5,000 units SQ Q12 GARRY Stop: 06/30/24 08:59 Last Admin: 05/31/24 20:49 Dose: 5,000 units Documented By: Admin: 05/31/24 12:01 Dose: 5,000 units Documented By: HRB Hydromorphone HCl (Hydromorphone Inj 0.5 Mg/0.5 Ml Syr) 0.5 mg IV Q3H PRN PRN Reason: Pain (6,7,8,9,10) Stop: 06/14/24 05:03 Last Admin: 05/31/24 05:26 Dose: 0.5 mg Documented By: SHERIFW Dexamethasone 10 mg/ Syringe 2.5 mls @ 1.25 mls/min IV Q24H GARRY Stop: 06/30/24 08:59 Last Admin: 05/31/24 10:59 Dose: 1.25 mls/min Documented By: HRB Magnesium Oxide (Magnesium Oxide 400 Mg Tab) 400 mg PO QAM GARRY Stop: 06/30/24 08:59 Last Admin: 05/31/24 10:01 Dose: 400 mg Documented By: HRB Pantoprazole Sodium (Pantoprazole 40 Mg Tab) 40 mg PO QAM GARRY Stop: 06/30/24 08:59 Last Admin: 05/31/24 10:01 Dose: 40 mg Documented By: HRB Polyethylene Glycol (Polyethylene (Miralax) 17 Gm Pack) 17 gm PO DAILY PRN PRN Reason: Constipation Stop: 06/30/24 05:03 Last Admin: 06/01/24 06:01 Dose: 17 gm Documented By: HFW Potassium Citrate (Potassium Citrate 10 Meq Tab) 10 meq PO BID GARRY Stop: 06/30/24 08:59 Last Admin: 05/31/24 20:49 Dose: 10 meq Documented By: Admin: 05/31/24 10:00 Dose: 10 meq Documented By: HRB Valsartan (Valsartan 80 Mg Tab) 160 mg PO QAM GARRY Stop: 06/30/24 08:59 Last Admin: 05/31/24 09:59 Dose: 160 mg Documented By: HRB Discontinued Medications Acetaminophen (Acetaminophen 500 Mg Tab) 1,000 mg PO Q8H PRN PRN Reason: First line Pain & Pre PT Stop: 06/30/24 05:03 Last Admin: 05/31/24 09:51 Dose: 1,000 mg Documented By: VGH Dexamethasone Sodium Phosphate (DexamethasonePf 10 Mg/Ml Vial) 10 mg IV NOW ONE Stop: 05/30/24 21:44 Last Admin: 05/30/24 22:02 Dose: 10 mg Documented By: BS Fentanyl Citrate (Fentanyl Citrate Pf 100 Mcg/2 Ml Vial) 50 mcg IV Q15M PRN PRN Reason: Pain Stop: 06/13/24 21:42 Last Admin: 05/31/24 00:17 Dose: 50 mcg Documented By: Admin: 05/30/24 22:02 Dose: 50 mcg Documented By: BS Metoprolol Succinate (Metoprolol Succ 25mg Ext Rel Tab) 25 mg PO ONE ONE Stop: 05/31/24 17:16 Last Admin: 05/31/24 17:15 Dose: 25 mg Documented By: HRB Ondansetron HCl (Ondansetron Inj 2 Mg/Ml 2 Ml Vial) 4 mg IV NOW STA Stop: 05/30/24 21:44 Last Admin: 05/30/24 22:02 Dose: 4 mg Documented By: DELVIN Medical Decision Making Medical Records Attestation: I reviewed the patient's medical records. Home Medications Current Medication List: was personally reviewed by me Laboratory Data Attestation: I reviewed the patient's lab results. 06/01/24 05:36 06/01/24 05:36 Lab Results 05/30/24 05/30/24 Range/Units 20:10 21:11 WBC 13.06 H (4.8-10.8) K/ul RBC 4.60 L (4.70-6.10) M/uL Hgb 14.0 (14.0-18.0) g/dl Hct 40.7 L (42.0-52.0) % MCV 88.5 (80.0-100.0) fL MCH 30.4 (25.0-34.0) pg MCHC 34.4 (32.0-36.0) g/dL RDW Std Deviation 43.4 (36.4-46.3) fL RDW Coeff of Armaan 13.3 (11.5-14.5) % Plt Count 234 (130-400) K/uL MPV 11.4 (9.4-12.4) fL Immature Gran % (Auto) 0.6 % Neut % (Auto) 70.2 % Lymph % (Auto) 18.9 % [place] % (Auto) 8.0 % Eos % (Auto) 1.8 % Baso % (Auto) 0.5 % Neut # (Auto) 9.17 H (1.40-6.50) K/uL Lymph # (Auto) 2.47 (1.20-3.40) K/uL [place] # (Auto) 1.05 H (0.11-0.59) K/uL Eos # (Auto) 0.23 (0.00-0.50) K/uL Baso # (Auto) 0.06 (0.00-0.20) K/uL Immature Gran # (Auto) 0.08 (0.01-0.20) K/uL Sodium Cancelled 138 Potassium Cancelled 3.9 Chloride Cancelled 103 Carbon Dioxide Cancelled 28 Anion Gap Cancelled 7 BUN Cancelled 18 Creatinine Cancelled 1.08 Est Cr Clr Drug Dosing Cancelled Not Reportable Est GFR ( Amer) Cancelled 80.7 Est GFR (Non-Af Amer) Cancelled 69.7 BUN/Creatinine Ratio Cancelled 16.7 Glucose Cancelled 124 H Calcium Cancelled 9.0 Total Bilirubin Cancelled 0.3 AST Cancelled 16 ALT Cancelled 17 Alkaline Phosphatase Cancelled 66 Total Creatine Kinase 145 (30-223) U/L Total Protein Cancelled 6.9 Albumin Cancelled 4.2 Globulin Cancelled 2.7 Albumin/Globulin Ratio Cancelled 1.6 Imaging Data Attestation: I personally reviewed and interpreted this imaging study as follows: Radiologist's Impression: Lumbar Spine MRI 05/30/24 21:43 Exam(s): MRI L SPINE Without Contrast EXAM: MR Lumbar Spine Without Intravenous Contrast CLINICAL HISTORY: Reason for exam: B leg weakness. TECHNIQUE: Magnetic resonance images of the lumbar spine without intravenous contrast in multiple planes. COMPARISON: No relevant prior studies available. FINDINGS: Vertebrae: There are 5 lumbar type vertebral bodies with a mild generalized curved to the left and shallow lumbar lordosis. There is normal vertebral body height and alignment. Patient is status post lateral, posterior and inner body fusion of L2 and L3 with transpedicular screws and connecting rods in place. No acute fracture. There is moderate bilateral sacroiliac joint arthropathy. Spinal cord: Unremarkable. Normal signal. Soft tissues: Moderate atrophy of the iliopsoas, paraspinous intraspinous musculature. The aorta and IVC flow voids are intact. Left renal cyst. Otherwise the visualized kidneys are unremarkable. DISCS/SPINAL CANAL/NEURAL FORAMINA: L1-L2: There is mild disc degeneration with annular disc bulge flattening the ventral thecal sac with disc extending to the neural foramina without impingement or significant stenosis. L2-L3: There is fusion across the segments with tiny residual annular disc bulge flattening the ventral thecal sac. There is marginal osteophyte extending to the neural foramina causing mild bilateral stenosis. L3-L4: There is mild disc degeneration with annular disc bulge causing a mild left subarticular recess stenosis with disc extending to the neural foramina causing moderate right and mild left stenosis with mild impingement of the right L3 nerve or ganglia. L4-L5: There is mild disc degeneration with annular disc bulge causing a severe subarticular recess stenosis with impingement of the transiting L5 nerve roots and critical spinal canal stenosis with thecal sac measuring 0.2 cm. There is disc and osteophyte extending to the neural foramina causing a moderate right and severe left stenosis with impingement of the bilateral L4 nerve root ganglia. L5-S1: The intervertebral disc is normal with marginal osteophyte extending to the right neural foramina causing a mild stenosis without evidence of neural impingement. IMPRESSION: 1. Mild disc degeneration at L1-L2, L3-4 and L4-5 flattening the ventral thecal sac and causing a mild subarticular recess stenosis at L3-4 and severe subarticular recess stenosis at L4-5 with impingement of the transiting L5 nerve roots. 2. There is a critical spinal canal stenosis at L4-5. 3. There is a moderate right and mild left L3-4, moderate right and severe left L4-5 and mild right L5-S1 neural foraminal stenosis with impingement of the right L3 and bilateral L4 nerve or ganglia. 4. No evidence of fracture, infection, tumor or arachnoiditis. Electronically signed by: Patricia Leon MD 05/31/24 00:54 AM MDM Narrative Prior records/ancillary studies reviewed. Triage Nursing notes reviewed. Additional history obtained from family. The patient's history was concerning for back pain. Differential diagnosis: Etiologies such as musculoskeletal, disc herniation, fracture, aortic disease, metastatic disease, cord compression, discitis, infection, renal colic, gastrointestinal, acute exacerbation of chronic back pain, sciatica, cauda equina, as well as others were entertained. Physical findings: As above. No focal neurologic findings noted. ER treatment provided: Fentanyl, Decadron On reassessment the patient felt better. Diagnostics interpreted by me: The labs Independently Interpreted by myself revealed mild leukocytosis, mild hyperglycemia without DKA Imaging studies: MRI was reviewed and read by radiology Consultation: A consultation was placed with hospitalist. The case was discussed and diagnostics were reviewed. They will evaluate the patient for admission. This appears to be consistent with intractable low back pain. Patient was able to ambulate. The pain was quite severe despite multiple rounds of pain meds. Medicine was consulted and the case is discussed he will be admitted to the medical service for further evaluation and treatment. By the evaluation outlined above emergent etiologies such as fracture, aortic disease, metastatic disease, infection, renal colic, gastrointestinal, cord compression, cauda equina, as well as others were deemed relatively unlikely. The pt informed about the findings as listed above. All questions were answered and pleased with the treatment. The chart was completed utilizing [employer] Speech voice recognition software. Grammatical errors, random word insertions, pronoun errors, and incomplete sentences are an occassional consequence of this system due to software limitations, ambient noise, and hardware issues. Any formal questions or concerns about the content, text, or information contained within the body of this dictation should be directly addressed to the physician financial services assistant for clarification. Impression & Plan Acute lumbar radiculopathy Discharge Plan Visit Data Chief Complaint: Back Injury/Pain Stated Complaint: BACK PAIN ED Provider: Gregory Hartman ED Midlevel Provider: Klaudia Zaldivar Discharge Problem: Acute lumbar radiculopathy Patient Disposition: Admitted As Inpatient Condition: Good Discharge Instructions Interventions: ED Discharge Assessment Last Done: 05/31/24 04:52
[2024-05-31] MEDS ORDERED: ONDANSETRON INJ 2 MG/ML 2 ML VIAL IV PRN (05:04)
[2024-05-31] MEDS ORDERED: MELATONIN 3 MG TAB PO PRN (05:04)
[2024-05-31] MEDS ORDERED: HYDROmorphone INJ 0.5 MG/0.5 ML SYR IV PRN (05:04)
[2024-05-31] MEDS: HYDROmorphone INJ 0.5 MG/0.5 ML SYR IV PRN (05:26)
[2024-05-31] MEDS: CYCLOBENZAPRINE HCL 10 MG TAB PO PRN (08:11)
[2024-05-31] MEDS: ACETAMINOPHEN 500 MG TAB PO PRN (09:51)
[2024-05-31] MEDS: VALSARTAN 80 MG TAB PO SCH (09:59)
[2024-05-31] MEDS: POTASSIUM CITRATE 10 MEQ TAB PO SCH (10:00)
[2024-05-31] MEDS: MAGNESIUM OXIDE 400 MG TAB PO SCH (10:01)
[2024-05-31] MEDS: PANTOprazole 40 MG TAB PO SCH (10:01)
[2024-05-31] MEDS ORDERED: POLYETHYLENE (MIRALAX) 17 GM PACK PO PRN (10:13)
[2024-05-31] MEDS: dexAMETHasone 10 MG in SYRINGE 0 ML IV SCH (10:59)
[2024-05-31] MEDS: HEPARIN SOD 5,000 UNIT/0.5 ML VIAL SQ SCH (12:01)
--- NOTE | 2024-05-31 16:31 | Hospitalist Progress Note ---
"Date of Service May 31, 2024 Assessment & Plan (1) Spinal stenosis of lumbar region: Plan: Spinal Stenosis | History of L2-L3 Spinal Fusion -Significant worsening of symptoms in the 24 hours leading to admission -Lumbar spine MRI shows critical spinal stenosis at L4-L5, moderate right and severe left L4-L ad mild right L5-S1 neural foraminal stenosis with impingement of right L3 and bilateral L4 nerve -Ortho spine consulted. Scheduled for July operation with Dr. Izaguirre. > Discussed case with Dr. Izaguirre via phone call 05/31. Unfortunately, he is unavailable until Saturday 06/02. Continue with current medical management for pain control until then. -Continue scheduled Tylenol, Dilaudid 0.25-0.5 mg IV every 3 hours as needed for pain -Continue dexamethasone -Continue cyclobenzaprine as needed for muscle spasms (2) HTN (hypertension): Plan: Continue valsartan, metoprolol, HCTZ Plan Discussed case with Dr. Izaguirre via phone call Ordered metoprolol Ordered HCTZ VTE Prophylaxis: Heparin Code Status: Full code Admission and Anticipated Discharge Date Admission Date: May 31, 2024 Supervising Physician Co-Signing Physician Notes Attending Attestation - Chart reviewed, care plan d/w DELON Bearden. I agree w/ the kim components of her documentation. Patient with SEVERE L4-L5 symptomatic spinal stenosis. Cont pain control with IV dexamethasone, dilaudid, etc. Dr Izaguirre returns 06/02 and will see in consult then. Suspect patient will need surgical intervention this week (was already scheduled to have decompression/fusion by Dr Izaguirre in July 2024 for this issue). Jorge Hopper MD Subjective Patient seen and evaluated at bedside. He reports 5/10 pain currently after receiving pain medication. He reports bilateral lumbar/hip pain that radiates down his legs bilaterally. He does note that the left side is worse than the right. He denies any bladder/bowel incontinence or anesthesias. He reports intermittent tingling down his legs, but none currently. We discussed that unfortunately Dr. Izaguirre is unavailable until Sunday, as we will continue with his current pain regimen until he can have an evaluation by Dr. Izaguirre. No additional complaints or concerns at this time. Physical Exam Physical Exam: General: No acute distress, nondiaphoretic, well-developed, well-nourished. Skin: The skin was without rashes, erythema, edema, or bruising. Cardiac: Regular rate and rhythm without murmurs gallops or rubs. Pulm: Clear to auscultation bilaterally without wheezes, rales or rhonchi. No respiratory distress. 95% on room air. Abdominal: Soft, nontender, nondistended. Bowel sounds present Neuro: A&O x3. No focal neurological deficits. MSK: Significant tenderness to palpation lumbar spine. Sensation intact at bilateral lower extremities. Normal strength to dorsi/plantarflexion. Dorsalis pedis pulses present bilaterally. Cap refill <3 seconds in feet bilaterally. Results & Data Results & Data Vital Signs (Past 12 Hours) Vital Signs Temp Pulse Resp BP Pulse Ox O2 Del Method 05/31/24 14:12 97.7 F 94 H 22 137/78 95 Room Air 05/31/24 08:03 83 121/83 97 Room Air 05/31/24 07:07 97.7 F 88 16 137/83 95 Room Air 05/31/24 05:15 97.9 F 83 18 157/99 H 96 Room Air Laboratory Results Reviewed CBC Reviewed CMP Diagnostic Findings Lumbar Spine MRI 05/30/24 21:43 Exam(s): MRI L SPINE Without Contrast EXAM: MR Lumbar Spine Without Intravenous Contrast CLINICAL HISTORY: Reason for exam: B leg weakness. TECHNIQUE: Magnetic resonance images of the lumbar spine without intravenous contrast in multiple planes. COMPARISON: No relevant prior studies available. FINDINGS: Vertebrae: There are 5 lumbar type vertebral bodies with a mild generalized curved to the left and shallow lumbar lordosis. There is normal vertebral body height and alignment. Patient is status post lateral, posterior and inner body fusion of L2 and L3 with transpedicular screws and connecting rods in place. No acute fracture. There is moderate bilateral sacroiliac joint arthropathy. Spinal cord: Unremarkable. Normal signal. Soft tissues: Moderate atrophy of the iliopsoas, paraspinous intraspinous musculature. The aorta and IVC flow voids are intact. Left renal cyst. Otherwise the visualized kidneys are unremarkable. DISCS/SPINAL CANAL/NEURAL FORAMINA: L1-L2: There is mild disc degeneration with annular disc bulge flattening the ventral thecal sac with disc extending to the neural foramina without impingement or significant stenosis. L2-L3: There is fusion across the segments with tiny residual annular disc bulge flattening the ventral thecal sac. There is marginal osteophyte extending to the neural foramina causing mild bilateral stenosis. L3-L4: There is mild disc degeneration with annular disc bulge causing a mild left subarticular recess stenosis with disc extending to the neural foramina causing moderate right and mild left stenosis with mild impingement of the right L3 nerve or ganglia. L4-L5: There is mild disc degeneration with annular disc bulge causing a severe subarticular recess stenosis with impingement of the transiting L5 nerve roots and critical spinal canal stenosis with thecal sac measuring 0.2 cm. There is disc and osteophyte extending to the neural foramina causing a moderate right and severe left stenosis with impingement of the bilateral L4 nerve root ganglia. L5-S1: The intervertebral disc is normal with marginal osteophyte extending to the right neural foramina causing a mild stenosis without evidence of neural impingement. IMPRESSION: 1. Mild disc degeneration at L1-L2, L3-4 and L4-5 flattening the ventral thecal sac and causing a mild subarticular recess stenosis at L3-4 and severe subarticular recess stenosis at L4-5 with impingement of the transiting L5 nerve roots. 2. There is a critical spinal canal stenosis at L4-5. 3. There is a moderate right and mild left L3-4, moderate right and severe left L4-5 and mild right L5-S1 neural foraminal stenosis with impingement of the right L3 and bilateral L4 nerve or ganglia. 4. No evidence of fracture, infection, tumor or arachnoiditis. Electronically signed by: Patricia Leon MD 05/31/24 00:54 AM PG Care Time/CCT Total # of Minutes Spent Total Time Spent with Patient: Total time spent is greater than 50% in coordination of care (as documented) at patient's floor/unit and/or counseling patient: Coding Level of Care Code 94322 SUB INP/OBS CARE 3/50MIN Diagnoses Spinal stenosis of lumbar region M48.061 HTN (hypertension) I10"
[2024-05-31] MEDS: DOCUSATE SODIUM 100 MG CAP PO PRN (16:52)
[2024-05-31] MEDS: METOPROLOL SUCC 25MG EXT REL TAB PO ONE (17:15)
[2024-05-31] MEDS: ACETAMINOPHEN 500 MG TAB PO SCH (18:05)
[2024-06-01] MEDS: POLYETHYLENE (MIRALAX) 17 GM PACK PO PRN (06:01)
[2024-06-01 06:31] LABS: Basophils # (auto) 0.03 K/uL (0.00-0.20); Basophils % (auto) 0.1 %; Eosinophils # (auto) 0.01 K/uL (0.00-0.50); Hematocrit (blood only) 41.8 % (42.0-52.0); Hemoglobin 13.6 g/dl (14.0-18.0); Immature Granulocytes # (auto) 0.23 K/uL (0.01-0.20); Lymphocytes # (auto) 2.08 K/uL (1.20-3.40); Lymphocytes % (auto) 8.9 %; Mean Corpuscular Hemoglobin 29.6 pg (25.0-34.0); Mean Corpuscular Hgb Conc 32.5 g/dL (32.0-36.0); Mean Corpuscular Volume 90.9 fL (80.0-100.0); Mean Platelet Volume 11.4 fL (9.4-12.4); Monocytes % (auto) 7.7 %; Neutrophils # (auto) 19.18 K/uL (1.40-6.50); Neutrophils % (auto) 82.3 %; Platelet Count 245 K/uL (130-400); RDW Coefficient of Variation 13.7 % (11.5-14.5); RDW Standard Deviation 45.1 fL (36.4-46.3); White Blood Count 23.33 K/ul (4.8-10.8)
[2024-06-01 06:49] LABS: Albumin Globulin Ratio 1.5 (0.9-2); BUN Creatinine Ratio 26.3 (10-20); Bilirubin,Total 0.3 mg/dl (0.2-1.0); Calcium 9.1 mg/dl (8.6-10.3); Creatinine Clr Calc Pharmacy 73.7 ml/min; Est GFR (African American) 89.7 ml/min; Est GFR (Non-African American) 77.4 ml/min; Globulin 2.7 gm/dl (2.5-4.0); Potassium 4.6 mmol/L (3.5-5.1); Total Protein 6.7 gm/dl (6.0-8.3)
--- NOTE | 2024-06-01 07:56 | Orthopedic Consultation ---
Date of Consultation June 01, 2024 Assessment & Plan (1) Spinal stenosis of lumbar region: Patient has significant spinal stenosis at L4-5 and to lesser degree at L3-4. I reviewed the findings with the patient and I discussed surgical options. He was already booked for a removal of hardware at L2-3 decompression from L3-L5 in conjunction with instrumented fusion likely to go from L2-L5. The main benefit of surgery significant chance of reduction of his claudicant symptoms or less degrees lower back pain. I discussed precise nature of the surgery including length of stay in the hospital, length of the procedure, and recovery times. I discussed the risks of surgery which include complications with anesthesia, worsening of his symptoms, incomplete relief of symptoms, damaging the nerves further, paralysis, hematoma requiring repeat surgery, adjacent level disease with the need for surgery in the distant future. After thorough discussion he would like to proceed with surgery as outlined above. Given the degree of pain that he is having and his inability to stand or walk a distance would like to try to get this done as soon as possible. Will see if we can get this done later this week. History of Present Illness Attending Physician: Jorge Hopper MD History of Present Illness Patient is a 69-year-old male with history significant for previous spinal fusion at L2-3. He has been seen in our office on multiple occasions and is actually scheduled for surgery in July. Unfortunately on of this month his pain became uncontrolled. He had a sharp pain in the left side of the lower back and increasing numbness going down both of his legs make it difficult for him to walk. He presented to the emergency room with intractable pain and was admitted to the medical service. Today he states the pain is better controlled with the medications he has been using here in the hospital. He rates his pain levels at about a 5-6 mild resting. He is up and walking the pain increases. He has not noted any taty weakness. He has no urinary retention or bladder or bowel dysfunction. Allergies Allergy/AdvReac Type Severity Reaction Status Date / Time oxycodone Allergy Intermediate Hives,ILEUS Verified 08/15/22 06:07 morphine AdvReac Intermediate BOWEL Verified 08/15/22 06:07 BLOCKAGE Home Medications Medication Instructions Recorded Confirmed Type ascorbic acid (vitamin C) 500 mg 500 mg PO QAM 03/02/21 08/15/22 History tablet (Vitamin C) ibuprofen 800 mg tablet 800 mg PO Q8H PRN Pain 03/02/21 08/15/22 History magnesium oxide 400 mg PO QAM 03/02/21 08/15/22 History multivitamin 1 tab PO QAM 03/02/21 08/15/22 History omeprazole 20 mg tablet,delayed 20 mg PO QAM 03/02/21 08/15/22 History release valsartan 160 mg capsule 160 mg PO QAM 03/02/21 08/15/22 History sildenafil 100 mg tablet 100 mg PO DAILY PRN sexual 01/23/22 08/15/22 Rx activity #20 tabs potassium citrate 10 mEq (1,080 10 meq PO BID 90 days #180 tabs 08/03/22 08/15/22 Rx mg) tablet,extended release ciprofloxacin HCl 500 mg tablet 500 mg PO BID #6 tabs 08/15/22 Rx (Cipro) Patient History Medical History Kidney stones History of kidney stones Encounter for pre-operative examination History of ileus s/p back surgery (2016) BPH (benign prostatic hyperplasia) Surgical History History of transurethral resection of prostate 02/2022 History of cystoscopy FOR KIDNEY STONES H/O right inguinal hernia repair (05/31/21) Open Repair of the Right Inguinal Hernia with Mesh (05/31/2021): Grade 2 view, MAC#3, ETT 7.5 at [facility]. No issues noted per post-op anesthesia progress note. History of esophagogastroduodenoscopy (EGD) History of colonoscopy History of arthroscopy RT KNEE History of total knee replacement Right S/P epidural steroid injection History of cystoscopy UROLIFT History of cataract surgery R/L History of Mohs micrographic surgery for skin cancer S/P lumbar spinal fusion L2-L3 hardware (2016) H/O elbow surgery Right x3, Left x2 H/O hernia repair Left inguinal Family History Mother Hypertension Sister Hypertension Father Lung cancer Brother Hypertension Aunt Family hx of colon cancer Other COPD (chronic obstructive pulmonary disease) Cancer No family history of adverse response to anesthesia Social History Smoking Status: Never smoker Second Hand Exposure: No; Do You Dip or Chew Tobacco: No; Tobacco Cessation Education Requested by Patient: No Hx Alcohol Use: Yes Alcohol type: beer Hx Substance Use: No Preferred Language: Malagasy Communication Ability: Effective Roof Promenade Tile Setter Required: No Beliefs That Will Affect Care: None Current Living Situation: Spouse current occupational status: retired Other Information That Helps Us Care for You: No Feels Safe at Home: Yes Safety Concerns: Feels Safe At This Time Assistive Devices: Glasses Physical Exam Physical Exam: On exam he is alert and oriented. He is able to stand and walk but slowly about the exam room. He is tender along the lower portion of the lumbar spine. He is full range of motion of the hips and knees. His lower extreme motor exam reveals no focal atrophy strength 5 out of 5 to detailed muscle testing without exception. Sensations intact to light touch proprioception is also intact his gait is stable. His abdomen soft nontender cardiovascular exam reveals no gross abnormalities visual mitchell are grossly intact skin is clean dry and intact. Results & Data Vital Signs (Past 12 Hours) Vital Signs Temp Pulse Resp BP Pulse Ox O2 Del Method 06/01/24 07:50 36.4 C L 80 16 161/88 H 94 Room Air Diagnostic Findings Recent MRI of the lumbar spine performed here at the hospital was reviewed. This reveals postoperative changes noted at L2-3 with evidence of a solid fusion. There is moderate stenosis at L3-4 secondary to facet hypertrophy. There is severe spinal stenosis at L4-5 secondary facet arthropathy thickening of the ligamentum flavum as well as a broad-based disc protrusion. L5-S1 has a small central disc retrusion with no high-grade stenosis. (1) Spinal stenosis of lumbar region Neurogenic claudication status: with neurogenic claudication Qualified Code(s): M48.062 - Spinal stenosis, lumbar region with neurogenic claudication
[2024-06-01] MEDS: hydroCHLOROthiazide 25 MG TAB PO SCH (08:23)
--- NOTE | 2024-06-01 09:30 | Anesthesiology Consultation ---
Date of Service June 01, 2024 Assessment & Plan (1) Encounter for pre-operative examination: Chart Review Chart Review: Acceptable Risk for Surgery and Patient NOT seen in Pre Admission Testing will order routine preop ecg. otherwise patient appears appropriate for surgery Consults Requested none History Height/Weight Height: 5 ft 6 in Weight: 89.4 kg Allergies Allergy/AdvReac Type Severity Reaction Status Date / Time oxycodone Allergy Intermediate Hives,ILEUS Verified 08/15/22 06:07 morphine AdvReac Intermediate BOWEL Verified 08/15/22 06:07 BLOCKAGE Medications Home Medications Medication Instructions Recorded Confirmed Last Taken ascorbic acid (vitamin C) 500 mg 500 mg PO QAM 03/02/21 08/15/22 08/14/22 08:00 tablet (Vitamin C) ibuprofen 800 mg tablet 800 mg PO Q8H PRN Pain 03/02/21 08/15/22 08/14/22 08:00 magnesium oxide 400 mg PO QAM 03/02/21 08/15/22 08/14/22 08:00 multivitamin 1 tab PO QAM 03/02/21 08/15/22 08/14/22 08:00 omeprazole 20 mg tablet,delayed 20 mg PO QAM 03/02/21 08/15/22 08/15/22 04:00 release valsartan 160 mg capsule 160 mg PO QAM 03/02/21 08/15/22 08/14/22 08:00 sildenafil 100 mg tablet 100 mg PO DAILY PRN sexual 01/23/22 08/15/22 Unknown activity #20 tabs potassium citrate 10 mEq (1,080 10 meq PO BID 90 days #180 tabs 08/03/22 08/15/22 08/14/22 20:00 mg) tablet,extended release ciprofloxacin HCl 500 mg tablet 500 mg PO BID #6 tabs 08/15/22 Unknown (Cipro) Active Medications Generic Name Dose Route Start Last Admin Trade Name Freq PRN Reason Stop Dose Admin Acetaminophen 1,000 mg 05/31/24 18:00 06/01/24 01:40 Acetaminophen 500 Mg Tab PO 06/30/24 17:59 1,000 mg Q8H GARRY Administration Cyclobenzaprine HCl 10 mg 05/31/24 05:04 06/01/24 06:00 Cyclobenzaprine Hcl 10 Mg Tab PO 06/30/24 05:03 10 mg Q8H PRN Administration Muscle Spasm Docusate Sodium 100 mg 05/31/24 10:13 06/01/24 08:23 Docusate Sodium 100 Mg Cap PO 06/30/24 10:12 100 mg BID PRN Administration Constipation Heparin Sodium (Porcine) 5,000 units 05/31/24 09:00 06/01/24 08:29 Heparin Sod 5,000 Unit/0.5 Ml Vial SQ 06/30/24 08:59 5,000 units Q12 GARRY Administration Hydrochlorothiazide 12.5 mg 06/01/24 09:00 06/01/24 08:23 Hydrochlorothiazide 25 Mg Tab PO 07/01/24 08:59 12.5 mg QAM GARRY Administration Hydromorphone HCl 0.5 mg 05/31/24 05:04 06/01/24 08:17 Hydromorphone Inj 0.5 Mg/0.5 Ml Syr IV 06/14/24 05:03 0.5 mg Q3H PRN Administration Pain (6,7,8,9,10) Dexamethasone 10 mg/ Syringe 2.5 mls @ 1.25 mls/min 05/31/24 09:00 06/01/24 08:18 IV 06/30/24 08:59 1.25 mls/min Q24H GARRY Administration Magnesium Oxide 400 mg 05/31/24 09:00 06/01/24 08:24 Magnesium Oxide 400 Mg Tab PO 06/30/24 08:59 400 mg QAM GARRY Administration Pantoprazole Sodium 40 mg 05/31/24 09:00 06/01/24 08:24 Pantoprazole 40 Mg Tab PO 06/30/24 08:59 40 mg QAM GARRY Administration Polyethylene Glycol 17 gm 05/31/24 05:04 06/01/24 06:01 Polyethylene (Miralax) 17 Gm Pack PO 06/30/24 05:03 17 gm DAILY PRN Administration Constipation Potassium Citrate 10 meq 05/31/24 09:00 06/01/24 08:24 Potassium Citrate 10 Meq Tab PO 06/30/24 08:59 10 meq BID GARRY Administration Valsartan 160 mg 05/31/24 09:00 06/01/24 08:23 Valsartan 80 Mg Tab PO 06/30/24 08:59 160 mg QAM GARRY Administration Past Medical History Medical History (Updated 06/01/24 @ 09:27 by Lazaro Lion MD) Acute lumbar radiculopathy History of pulmonary embolus (PE) Post-op (s/p elbow surgery 1975), no recent issues HTN (hypertension) Kidney stones History of kidney stones Encounter for pre-operative examination History of ileus s/p back surgery (2016) BPH (benign prostatic hyperplasia) Past Family History Family History Mother Hypertension Sister Hypertension Father Lung cancer Brother Hypertension Aunt Family hx of colon cancer Other COPD (chronic obstructive pulmonary disease) Cancer No family history of adverse response to anesthesia Past Surgical History Surgical History History of transurethral resection of prostate 02/2022 History of cystoscopy FOR KIDNEY STONES H/O right inguinal hernia repair (05/31/21) Open Repair of the Right Inguinal Hernia with Mesh (05/31/2021): Grade 2 view, MAC#3, ETT 7.5 at [facility]. No issues noted per post-op anesthesia progress note. History of esophagogastroduodenoscopy (EGD) History of colonoscopy History of arthroscopy RT KNEE History of total knee replacement Right S/P epidural steroid injection History of cystoscopy UROLIFT History of cataract surgery R/L History of Mohs micrographic surgery for skin cancer S/P lumbar spinal fusion L2-L3 hardware (2016) H/O elbow surgery Right x3, Left x2 H/O hernia repair Left inguinal 08/15/22 TURP: LMA #5. No issues. Social History Smoking Status: Never smoker Do You Dip or Chew Tobacco: No Hx Alcohol Use: Yes Alcohol type: beer alcohol intake frequency: a few times a month Hx Substance Use: No substance use type: does not use Physical Exam Vital Signs Last Vital Signs Temp 36.4 C L 06/01/24 07:50 Pulse 80 06/01/24 07:50 Resp 16 06/01/24 07:50 BP 161/88 H 06/01/24 07:50 Pulse Ox 94 06/01/24 07:50 O2 Del Method Room Air 06/01/24 07:50 Testing Laboratory Results 06/01/24 05:36 06/01/24 05:36 Electrocardiogram Date: 08/04/22 Findings: + NSR @ (81) normal ecg
[2024-06-01] MEDS: METOPROLOL SUCC 25MG EXT REL TAB PO SCH (09:32)
--- NOTE | 2024-06-01 11:16 | Hospitalist Progress Note ---
"Date of Service June 01, 2024 Assessment & Plan (1) Spinal stenosis of lumbar region: Plan: Spinal Stenosis | History of L2-L3 Spinal Fusion -Significant worsening of symptoms in the 24 hours leading to admission -Lumbar spine MRI shows critical spinal stenosis at L4-L5, moderate right and severe left L4-L ad mild right L5-S1 neural foraminal stenosis with impingement of right L3 and bilateral L4 nerve -Ortho spine consulted. Scheduled for July operation with Dr. Izaguirre. > Discussed case with Dr. Izaguirre via phone call 05/31. Unfortunately, he is unavailable until Saturday 06/02. Continue with current medical management for pain control until then. > Seen by ortho PAAleahC who discussed surgical options; decision was made to proceed with surgery as soon as possible. Hopeful for surgery this week, potentially even 06/02/24. NPO at midnight pending surgery. -Continue scheduled Tylenol, Dilaudid 0.25-0.5 mg IV every 3 hours as needed for pain -Continue dexamethasone. Leukocytosis likely secondary to steroids, no infectious signs or symptoms. -Continue cyclobenzaprine as needed for muscle spasms (2) HTN (hypertension): Plan: Continue valsartan, metoprolol, HCTZ Plan Updated son and thqupnat-qx-iac at bedside VTE Prophylaxis: Heparin Code Status: Full code Admission and Anticipated Discharge Date Admission Date: May 31, 2024 Supervising Physician Co-Signing Physician Notes Attending Attestation - Chart reviewed, care plan d/w DELON Bearedn. I agree w/ the kim components of her documentation. Appreciate ortho-spine assistance. Possibly to OR tomorrow for removal of hardware at L2-3, decompression from L3- L5, instrumented fusion likely to go from L2-L5. NPO after MN tonight in the event he does indeed have surgery on 06/02. Pain meds/steroids in meantime. Leukocytosis likely demargination due to IV steroids. NO infectious symptoms at this time per Ms Bearden. Check INR am. Jorge Hopper MD Subjective Patient seen and evaluated in bedside chair with his son and axjxsebo-vh-orl present. He reports that his back pain is currently a 3/10. He does note that he had a bowel movement today. He denies any infectious symptoms. He states that he may have back surgery as early as tomorrow, 06/02/2024. He has some questions about insurance, I told him that I would ask case management to come speak with him about his medical insurance questions. No additional complaints or concerns at this time. Physical Exam Physical Exam: General: No acute distress, nondiaphoretic, well-developed, well-nourished. Skin: The skin was without rashes, erythema, edema, or bruising. Cardiac: Regular rate and rhythm without murmurs gallops or rubs. Pulm: Clear to auscultation bilaterally without wheezes, rales or rhonchi. No respiratory distress. 94% on room air. Abdominal: Soft, nontender, nondistended. Bowel sounds present Neuro: A&O x3. No focal neurological deficits. MSK: Significant tenderness to palpation lumbar spine. Sensation intact at bilateral lower extremities. Normal strength to dorsi/plantarflexion. Dorsalis pedis pulses present bilaterally. Cap refill <3 seconds in feet bilaterally. Results & Data Results & Data Vital Signs (Past 12 Hours) Vital Signs Temp Pulse Resp BP Pulse Ox O2 Del Method 06/01/24 07:50 97.5 F L 80 16 161/88 H 94 Room Air Laboratory Results Reviewed CBC Reviewed CMP PG Care Time/CCT Total # of Minutes Spent Total Time Spent with Patient: Total time spent is greater than 50% in coordination of care (as documented) at patient's floor/unit and/or counseling patient: Coding Level of Care Code 20747 SUB INP/OBS CARE 2/35MIN Diagnoses Spinal stenosis of lumbar region with neurogenic claudication M48.062 Neurogenic claudication status: with neurogenic claudication HTN (hypertension) I10 (1) Spinal stenosis of lumbar region Neurogenic claudication status: with neurogenic claudication Qualified Code(s): M48.062 - Spinal stenosis, lumbar region with neurogenic claudication"
--- NOTE | 2024-06-01 19:32 | Billing Data ---
Date of Service June 01, 2024 Coding Level of Care Code 56152 INT INP/OBS CARE
[2024-06-02 06:25] LABS: Basophils # (auto) 0.04 K/uL (0.00-0.20); Basophils % (auto) 0.2 %; Eosinophils # (auto) 0.01 K/uL (0.00-0.50); Hematocrit (blood only) 41.7 % (42.0-52.0); Hemoglobin 13.6 g/dl (14.0-18.0); Immature Granulocytes # (auto) 0.37 K/uL (0.01-0.20); Immature Granulocytes % (auto) 1.7 %; Lymphocytes # (auto) 2.73 K/uL (1.20-3.40); Lymphocytes % (auto) 12.8 %; Mean Corpuscular Hemoglobin 29.6 pg (25.0-34.0); Mean Corpuscular Hgb Conc 32.6 g/dL (32.0-36.0); Mean Corpuscular Volume 90.8 fL (80.0-100.0); Mean Platelet Volume 11.3 fL (9.4-12.4); Monocytes # (auto) 1.97 K/uL (0.11-0.59); Monocytes % (auto) 9.2 %; Neutrophils # (auto) 16.18 K/uL (1.40-6.50); Neutrophils % (auto) 76.1 %; Platelet Count 239 K/uL (130-400); RDW Coefficient of Variation 13.6 % (11.5-14.5); RDW Standard Deviation 45.1 fL (36.4-46.3); Red Blood Count 4.59 M/uL (4.70-6.10)
[2024-06-02 06:31] LABS: Albumin Globulin Ratio 1.6 (0.9-2); Albumin Level 3.9 gm/dl (3.4-5.0); BUN Creatinine Ratio 26.1 (10-20); Bilirubin,Total 0.3 mg/dl (0.2-1.0); Creatinine Clr Calc Pharmacy 79.4 ml/min; Est GFR (Non-African American) 84.6 ml/min; Globulin 2.4 gm/dl (2.5-4.0); Potassium 4.5 mmol/L (3.5-5.1); Total Protein 6.3 gm/dl (6.0-8.3)
[2024-06-02 06:41] LABS: INR 0.9 (0.9-1.1); Prothrombin Time 10.3 Seconds (9.0-12.0)
[2024-06-02] MEDS ORDERED: ONDANSETRON INJ 2 MG/ML 2 ML VIAL ONE ×2 (10:49→13:21)
[2024-06-02] MEDS ORDERED: ROCURONIUM BROMIDE 10 MG/ML 5 ML VIAL IV ONE ×4 (10:49→14:32)
[2024-06-02] MEDS ORDERED: MIDAZOLAM HCL 1 MG/ML 2ML VIAL ONE ×2 (10:49→12:03)
[2024-06-02] MEDS ORDERED: PROPOFOL IV EMULSION 10 MG/ML 20 ML VIAL IV ONE ×2 (10:49→13:21)
[2024-06-02] MEDS ORDERED: DEXAMETHASONE SOD INJ 4 MG/ML VIAL ONE ×2 (10:49→13:21)
[2024-06-02] MEDS ORDERED: SUGAMMADEX SODIUM 200 MG/2 ML VIAL IV ONE ×2 (10:50→13:52)
[2024-06-02] MEDS ORDERED: fentaNYL citrate PF 100 MCG/2 ML VIAL ONE ×2 (10:50→12:03)
[2024-06-02] MEDS ORDERED: HYDROmorphone INJ 2 MG/ML SYR/VIAL ONE (10:50)
[2024-06-02] MEDS ORDERED: ePHEDrine sulfate 50 MG/ML AMP IV PRN (11:43)
[2024-06-02] MEDS ORDERED: ONDANSETRON INJ 2 MG/ML 2 ML VIAL IV PRN ×2 (11:43→16:20)
[2024-06-02] MEDS ORDERED: ATROPINE SULFATE 0.1 MG/ML 10ML SYR IV PRN (11:43)
[2024-06-02] MEDS ORDERED: KETAMINE HCL 10MG/ML SYR ONE (12:04)
--- NOTE | 2024-06-02 12:10 | History & Physical Bridge Note ---
Date of Service June 02, 2024 History & Physical Bridge Note I have examined the patient, reviewed the History & Physical and in the interval since the performance of the History & Physical I have noted the following changes of clinical significance: no changes noted Lumbar decompression and fusion L3-L4 L4-L5 with hardware removal L2-L3
[2024-06-02] MEDS: ceFAZolin 3000MG 3,000 MG/72.5 ML BAG IV ONE (12:33)
[2024-06-02] MEDS ORDERED: DexMEDEtomidine HCL IV 100 MCG/ML VIAL IV ONE (12:47)
[2024-06-02] MEDS: VANCOMYCIN HCL 1000MG/20ML VIAL ONE (13:13)
[2024-06-02] MEDS ORDERED: LIDOCAINE 2% 2 ML VIAL/AMP(20MG/ML) INFIL ONE (13:21)
[2024-06-02] MEDS ORDERED: PHENYLEPHRINE 100MCG/ML 10ML SYR IV ONE (13:21)
[2024-06-02] MEDS ORDERED: GLYCOPYRROLATE 0.2 MG/ML VIAL ONE (13:21)
[2024-06-02] MEDS ORDERED: ePHEDrine sulfate 50 MG/5 ML SYR ONE (13:52)
[2024-06-02] MEDS ORDERED: PHENYLEPHRINE HCL 10 MG/ML VIAL ONE (13:52)
[2024-06-02] MEDS: FLOSEAL HEMOSTATIC MATRIX 10ML TOP ONE (14:45)
[2024-06-02] MEDS: ceFAZolin 330 MG/ML 1 GM VIAL ONE (14:45)
[2024-06-02] MEDS: BUPIVACAINE/EPINEPHRINE 0.25% 1:200,000 30 ML VIAL ONE (14:45)
--- NOTE | 2024-06-02 15:02 | Operative Report ---
Post Operative Report Pre & Post Diagnosis Operation Date: 06/02/24 07:00 Pre-Op Diagnosis: #1 lumbar spinal stenosis with neurogenic claudication #2 foraminal disc herniation L3-L4 L4-L5 Postop diagnosis: Same I identified the patient and participated in the time-out.: Yes Procedure Operation Date: 06/02/24 07:00 Actual Procedures #1 removal of posterior instrumentation L2-L3. #2 exploration of fusion L2-L3. #3 lumbar decompression with bilateral medial facetectomies and foraminotomies L3-L4 L4-5. #4 posterior spinal fusion L3-L4 L4-L5. #5 placement posterior instrumentation L2-L5. #6 interbody fusion L3-L4 L4-5 #7 placement of Spira 15 x 26 mm at L3-L4 and 14 x 26 mm x 2 at L4-5. #8 placement of locally harvested morselized autograft posterior gutters. #9 placement of infuse collagen sponge, with Koros in the posterior lateral gutters and os design bone graft interbody space. #10 placement of versa wrap on exposed dura. Surgeon Nicolas Izaguirre, DO Field Consultant Mireya Cordova Estimated Blood Loss 250 Findings See Below The patient is 5 foot 6 weighing over 89 kg with a BMI in excess of 31. The patient's body mass did contribute to significant technical difficulty required deepest retraction longer instruments in order perform his procedure. This at least 50% increased operative time. Specimens None Indications This is a 69-year-old male known to me the presents with marked decline in status over the past several days with inability ambulate and significant numbness in the bilateral lower extremities. Subsequently is here for urgent decompression fusion. Description of Procedure Patient was met with identified informed consent obtained. Patient was then taken to the operative suite underwent ablation placed in a prone position on the Nba table on top of the Mike frame. All bony promises well-padded eyes inspected to ensure no external pressure placed upon them. This point lumbar spine was prepped and draped in normal sterile fashion Sharp dissection with the assistance of Bovie cautery was performed down to and exposing the instrumentation at L2-L3 and the lamina transverse processes of L3-L4-L5 bilaterally. I then proceeded with the hardware at L2-L3 bilaterally. Explored the fusion mass noting it to be mature and intact. Informed complete laminectomy of L4 including bilateral medial facetectomies and foraminotomies followed by complete laminectomy of L3 including bilateral medial facetectomies and foraminotomies. This did include excision of the foraminal disc herniations at both L3-L4 and L4-5 on the left. Pedicle screws then placed at L2-L3 L4-5 bilaterally with assistance of fluoroscopy and appropriate size manuel contoured and placed. By way of transforaminal approach on the left discectomy of L4-5 was performed endplates guided to subcortical bleeding bone and a 14 x 26 mm Spira cage filled with os design tapped into position. Then proceeded to the right transforaminal region at L4-5. Again by way of transforaminal approach discectomy performed endplates guarded to subcortical mean bone and a second 14 x 26 mm spiral cage filled with os design tapped in position. Then proceeded to L3-L4 and by way of transforaminal approach to the left complete discectomy was performed endplates guarded to subcortical bleeding bone and a 15 x 26 mm Spira cage filled with os design tapped in position. The rods are then compressed locked into final position bilaterally. The transverse processes of L3 L4-5 b urred to subcortical bleeding bone. Infuse collagen sponge combined with Koros and local autograft placed in the posterior lateral gutters. Versa wrap placed over the exposed dura. 15 round THU drain inserted. The incision was then closed with 1 Vicryl the fascia 2-0 Vicryl subcutaneously and 4 Monocryl for final skin closure. Steri-Strips sterile dressing placed. Patient waken taken to PACU stable condition. Please note spinal cord monitoring visualized at the procedure no changes noted. Spinal cord monitoring was utilized at the procedure no changes noted. I attest to the content of the Intraoperative Record and any orders documented therein. Any exceptions are noted below.
--- NOTE | 2024-06-02 15:15 | Fluoroscopy Report ---
FL lumbar spine 2-3V CLINICAL HISTORY: Lumbar COMPARISON STUDY: 01/01/17 FLUOROSCOPY TIME: 19 seconds FLUOROSCOPY IMAGES: 3 EXPOSURE DOSE: 14.13 mGy FINDINGS: Posterior interbody rods and fusion with discectomy noted at what appears be the L2-L5 leve ls. Hardware appears intact. No unexpected opaque foreign bodies. IMPRESSION: Fluoroscopic assistance as above. ACT 112: Negative or not required by law. Electronically signed by: Cornell Mccauley M.D. 06/02/2024 3:14 PM
[2024-06-02] MEDS: fentaNYL citrate PF 100 MCG/2 ML VIAL IV PRN (15:36)
--- NOTE | 2024-06-02 15:55 | Anesthesiology Progress Note ---
Date of Service June 02, 2024 Anesthesia Post Procedure Vital Signs Vital Signs: Temp Pulse Pulse Resp BP BP Pulse Ox 06/02/24 15:45 83 12 109/63 94 06/02/24 15:35 72 12 101/60 98 06/02/24 15:25 76 12 115/66 99 06/02/24 15:17 96.8 F L 78 18 116/66 97 06/02/24 11:14 98.1 F 87 18 154/90 H 95 06/02/24 07:11 97.9 F 82 16 161/98 H 97 06/01/24 19:45 98.2 F 81 18 143/77 H 94 06/01/24 16:40 97.7 F 78 16 145/79 H 93 O2 Del Method O2 Flow Rate 06/02/24 15:45 Nasal Cannula 3 06/02/24 15:35 Oxymask 9 06/02/24 15:25 Oxymask 9 06/02/24 15:17 Oxymask 9 06/02/24 11:14 Room Air 06/02/24 07:11 Room Air 06/01/24 19:45 Room Air 06/01/24 16:40 Room Air Pain Intensity Lower Back: Pain Intensity: 5 Transfer of Care Handoff Completed per policy Notes Mental Status: alert / awake / arousable and participated in evaluation Patient Amnestic to Procedure: Yes Nausea / Vomiting: adequately controlled Pain: adequately controlled Airway Patency, RR, SpO2: stable & adequate BP & HR: stable & adequate Hydration State: stable & adequate Anesthetic Complications: no major complications apparent and Pt Satisfied with anesthetic care
[2024-06-02] MEDS ORDERED: ONDANSETRON 4 MG OD TAB PO PRN (16:20)
[2024-06-02] MEDS ORDERED: NALOXONE HCL 0.4 MG/1 ML VIAL/CARP IV PRN (16:20)
[2024-06-02] MEDS ORDERED: PROMETHAZINE 12.5 MG/50.5 ML BAG IV PRN (16:20)
[2024-06-02] MEDS ORDERED: bisacodyL 10 MG SUPP PR PRN (16:20)
[2024-06-02] MEDS ORDERED: ACETAMINOPHEN 1,000 MG/100 ML VIAL IV PRN (16:20)
[2024-06-02] MEDS ORDERED: LORazepam 2 MG/1 ML VIAL IV PRN (16:20)
[2024-06-02] MEDS ORDERED: FAMOTIDINE 20 MG TAB PO PRN (16:20)
[2024-06-02] MEDS ORDERED: SOD PHOSPHATE/SOD BIPHOSPHATE ENEMA 132 ML BTL PR PRN (16:20)
[2024-06-02] MEDS ORDERED: diphenhydrAMINE Capsule 25 MG CAP PO PRN (16:20)
[2024-06-02] MEDS ORDERED: METOCLOPRAMIDE HCL INJ 5 MG/ML 2 ML VIAL IV PRN (16:20)
[2024-06-02] MEDS ORDERED: DO NOT ADMINISTER PNEUMOCOCCAL VACCINE PRN (16:20)
[2024-06-02] MEDS ORDERED: hydrOXYzine HCl 25 MG TAB PO PRN (16:20)
[2024-06-02] MEDS ORDERED: DO NOT ADMINISTER FLU VACCINE PRN (16:20)
[2024-06-02] MEDS ORDERED: ALUMINUM/MAGNESIUM SUSP 30 ML UDC PO PRN (16:20)
[2024-06-02] MEDS ORDERED: LORazepam 0.5 MG TAB PO PRN (16:20)
[2024-06-02] MEDS: LACTATED RINGER'S 1,000 ML IV SCH (16:42)
[2024-06-02] MEDS: HYDROmorphone INJ 1 MG/ML SYRINGE IV PRN (16:45)
--- NOTE | 2024-06-02 18:48 | Hospitalist Progress Note ---
"Date of Service June 02, 2024 Assessment & Plan (1) Spinal stenosis of lumbar region: Plan: Spinal Stenosis | History of L2-L3 Spinal Fusion -Significant worsening of symptoms in the 24 hours leading to admission -Lumbar spine MRI shows critical spinal stenosis at L4-L5, moderate right and severe left L4-L ad mild right L5-S1 neural foraminal stenosis with impingement of right L3 and bilateral L4 nerve -Ortho spine consulted. Scheduled for July operation with Dr. Izaguirre. > Discussed case with Dr. Izaguirre via phone call 05/31. Unfortunately, he is unavailable until Saturday 06/02. Continue with current medical management for pain control until then. > Seen by ortho JOANN who discussed surgical options; decision was made to proceed with surgery as soon as possible. -Patient had L2-L3 hardware removal, L3-L4, L4-L5 decompression, instrumented fusion L2-L5 surgery with Dr. Izaguirre 06/02/2024. EBL 250 cc. -Continue scheduled Tylenol, Dilaudid 0.5-1 mg IV every 3 hours as needed for pain -Continue cyclobenzaprine as needed for muscle spasms -Dexamethasone discontinued by Ortho. Leukocytosis likely secondary to steroids, no infectious signs or symptoms. (2) HTN (hypertension): Plan: Continue valsartan, metoprolol, HCTZ Plan VTE Prophylaxis: Heparin Code Status: Full code Admission and Anticipated Discharge Date Admission Date: June 01, 2024 Supervising Physician Co-Signing Physician Notes Attending Attestation - Chart reviewed, care plan d/w DELON Bearden. I agree w/ the kim components of her documentation. Patient is s/p lumbar spine surgery today with Dr Izaguirre. Appreciate his assistance. Jorge Hopper MD Subjective Patient seen and evaluated at bedside in PACU. He had lumbar surgery with Dr. Izaguirre today. Patient was groggy at the time my evaluation, but vital signs stable. He reports dry mouth but otherwise has no complaints at this time. Physical Exam Physical Exam: General: No acute distress, nondiaphoretic, well-developed, well-nourished. Skin: The skin was without rashes, erythema, edema, or bruising. Cardiac: Regular rate and rhythm without murmurs gallops or rubs. Pulm: Clear to auscultation bilaterally without wheezes, rales or rhonchi. No respiratory distress. 99% on 2L. Abdominal: Soft, nontender, nondistended. Bowel sounds present. Neuro: A&O x3. No focal neurological deficits. Results & Data Results & Data Vital Signs (Past 12 Hours) Vital Signs Temp Pulse Pulse Resp BP BP Pulse Ox 06/02/24 18:30 97.7 F 84 16 129/82 99 06/02/24 17:34 97.7 F 83 16 108/71 97 06/02/24 17:01 98.1 F 85 16 97/67 L 96 06/02/24 16:05 84 14 110/73 97 06/02/24 15:55 97.7 F 72 16 118/68 96 06/02/24 15:45 83 12 109/63 94 06/02/24 15:35 72 12 101/60 98 06/02/24 15:25 76 12 115/66 99 06/02/24 15:17 96.8 F L 78 18 116/66 97 06/02/24 11:14 98.1 F 87 18 154/90 H 95 06/02/24 07:11 97.9 F 82 16 161/98 H 97 O2 Del Method O2 Flow Rate 06/02/24 18:30 Nasal Cannula 2 06/02/24 17:34 Nasal Cannula 3 06/02/24 17:01 Nasal Cannula 3 06/02/24 16:05 Nasal Cannula 3 06/02/24 15:55 Nasal Cannula 3 06/02/24 15:45 Nasal Cannula 3 06/02/24 15:35 Oxymask 9 06/02/24 15:25 Oxymask 9 06/02/24 15:17 Oxymask 9 06/02/24 11:14 Room Air 06/02/24 07:11 Room Air Laboratory Results Reviewed CBC Reviewed coags Reviewed CMP PG Care Time/CCT Total # of Minutes Spent Total Time Spent with Patient: Total time spent is greater than 50% in coordination of care (as documented) at patient's floor/unit and/or counseling patient: Coding Level of Care Code 20516 SUB INP/OBS CARE 2/35MIN Diagnoses Spinal stenosis of lumbar region with neurogenic claudication M48.062 Neurogenic claudication status: with neurogenic claudication HTN (hypertension) I10 (1) Spinal stenosis of lumbar region Neurogenic claudication status: with neurogenic claudication Qualified Cod e(s): M48.062 - Spinal stenosis, lumbar region with neurogenic claudication"
[2024-06-02] MEDS: DOCUSATE SODIUM/SENNA 50/8.6MG TAB PO SCH (20:05)
[2024-06-02] MEDS: ceFAZolin 2000MG 2,000 MG/15 ML SYR IV SCH (20:06)
[2024-06-03] MEDS: POLYETHYLENE (MIRALAX) 17 GM PACK PO SCH (05:54)
[2024-06-03] MEDS: HYDROmorphone INJ 0.5 MG/0.5 ML SYR IV PRN (05:54)
--- NOTE | 2024-06-03 06:15 | Electrocardiogram Report ---
Test Reason : Blood Pressure : */* mmHG Vent. Rate : 79 BPM Atrial Rate : 79 BPM P-R Int : 192 ms QRS Dur : 90 ms QT Int : 370 ms P-R-T Axes : 79 58 75 degrees QTcB Int : 424 ms Normal sinus rhythm with sinus arrhythmia Normal ECG When compared with ECG of 04-Aug-2022 13:02, No significant change was found Confirmed by Lalit Montalvo ([id number] on 06/03/2024 6:14:47 AM Referred By: REFERRED SELF Confirmed By: Lalit Montalvo
[2024-06-03 07:03] LABS: Basophils # (auto) 0.04 K/uL (0.00-0.20); Basophils % (auto) 0.2 %; Hematocrit (blood only) 36.7 % (42.0-52.0); Hemoglobin 12.1 g/dl (14.0-18.0); Immature Granulocytes # (auto) 0.47 K/uL (0.01-0.20); Immature Granulocytes % (auto) 1.9 %; Lymphocytes # (auto) 2.93 K/uL (1.20-3.40); Mean Corpuscular Hemoglobin 30.1 pg (25.0-34.0); Mean Corpuscular Volume 91.3 fL (80.0-100.0); Mean Platelet Volume 11.2 fL (9.4-12.4); Monocytes # (auto) 2.55 K/uL (0.11-0.59); Monocytes % (auto) 10.5 %; Neutrophils # (auto) 18.36 K/uL (1.40-6.50); Neutrophils % (auto) 75.4 %; Platelet Count 237 K/uL (130-400); RDW Coefficient of Variation 13.8 % (11.5-14.5); RDW Standard Deviation 46.6 fL (36.4-46.3); Red Blood Count 4.02 M/uL (4.70-6.10); White Blood Count 24.35 K/ul (4.8-10.8)
[2024-06-03 07:20] LABS: BUN Creatinine Ratio 26.3 (10-20); Calcium 8.3 mg/dl (8.6-10.3); Est GFR (African American) 75.6 ml/min; Est GFR (Non-African American) 65.3 ml/min; Potassium 4.4 mmol/L (3.5-5.1)
[2024-06-03] MEDS: dexAMETHasone 6 MG in SYRINGE 0 ML IV SCH (08:20)
--- NOTE | 2024-06-03 08:21 | Hospitalist Progress Note ---
"Date of Service June 03, 2024 Assessment & Plan (1) Spinal stenosis of lumbar region: Plan: Spinal Stenosis | History of L2-L3 Spinal Fusion -Significant worsening of symptoms in the 24 hours leading to admission -Lumbar spine MRI shows critical spinal stenosis at L4-L5, moderate right and severe left L4-L ad mild right L5-S1 neural foraminal stenosis with impingement of right L3 and bilateral L4 nerve Ortho spine consulted. Scheduled for July operation with Dr. Izaguirre. Discussed case with Dr. Izaguirre via phone call 05/31. Unfortunately, unavailable until Saturday 06/02 and to continue current medical management/pain control until that time. Seen by ortho PA and decision was to undergo surgery s/p L2-L3 hardware removal, L3-L4, L4-L5 decompression, instrumented fusion L2- L5 surgery with Dr. Izaguirre 06/02/2024. WBC elevation suspected 2nd to steroids, afebrile at this time/no infectious sx appearing Hgb 12.1, acute blood loss anemia from surgery (EBL 250 cc. THU output 530cc + 70cc) as well as some dilutional aspect from IVF and is asymptomatic from such. Will hold AM HCTZ for now for mild dehydration/slight bump in Cr but is asymptomatic from such and to push PO fluids for now. +flatus and reported SMALL BM last evening 06/02 but did report ileus in the past w/ prior back surgery Bowel regimen with miralax q6h started today, remains on senna/docusate HS and adding BID colace and will monitor. Ambulation encouraged. Discussed with patient to alert nursing if decreased flatus/increased abdominal pain Tang to be removed today. Monitor UOP/ensure no retention Pain control per Dr Izaguirre, opiates/muscle spasm agents as needed PT/OT consults pending Likely inpatient another 2-3 days, but dispo per Dr Izaguirre (discussed w/ Dr Izaguirre and he will discharge when patient is stable/ready for such) Montior labs/exam on repeat (2) HTN (hypertension): Plan: BP stable but did have slight drop last evening 123/83 today and continues on home metoprolol, valsartan but will hold HCTZ for today/monitor volume status in AM and likely resume 06/04 Plan VTE Prophylaxis: Heparin pre-op, now with SCDs/JOANIE hose post-operatively (discussed w/ Dr Izaguirre and not to add Heparin/Lovenox SQ post-op). Ambulation encouraged. No evidence for DVT on exam Dispo: continued inpatient stay monitoring pain control/bowels, PT/OT. Likely dc next 48 hours pending progress Admission and Anticipated Discharge Date Admission Date: June 01, 2024 Subjective Evaluated this morning, sitting up in chair. THU emptied this morning, about half full presently and to stay in place at this time. Pain reasonable control but concerns about tolerance in the past. Tramadol made him see lines, able to tolerate Dilaudid and discussed hydrocodone. Passing gas, small bowel movement last night. Discussed ambulation and monitoring for bowels. Tang in place, to be removed this morning. Issues with constipation in the past and he did have ileus with prior surgery. Has been on bowel regimen. He notes once ileus resolved last time he didn't need much pain control. Will monitor. Not yet seen by Dr Izaguirre. Questions/concerns addressed at this time. Physical Exam 2 Physical Exam: General: 69 yo male sitting up in chair, NAD, RN in room HEENT: head atraumatic, normocephalic, mm slightly dry, trachea midline Resp: even/unlabored, no w/c/r, on room air CV: RRR, no significant m/r/g, no pitting edema, calves nontender, pulses present, joanie hoses in place GI: +BS throughout although slight distension, nontender/no rigidity : tang with clear yellow urine (RN to remove this morning) MSK/Neuro: dressing c/d/i, THU with ~50-60cc bloody/serosanguineous drainage strength equal dorsiflexion/plantar flexion Psych: AOx3, cooperative with exam Results & Data Results & Data Vital Signs (Past 12 Hours) Vital Signs Temp Pulse Resp BP Pulse Ox O2 Del Method O2 Flow Rate 06/03/24 07:39 36.7 C 85 18 123/82 100 Nasal Cannula 2 06/03/24 07:35 Nasal Cannula 2 06/03/24 03:08 36.8 C 68 16 124/85 100 Nasal Cannula 2 06/02/24 23:00 36.8 C 78 18 110/73 97 Nasal Cannula 2 06/02/24 22:12 Nasal Cannula 2 Laboratory Results 06/03/24 06:05 06/03/24 06:05 Diagnostic Findings Lumbar Spine X-Ray 06/02/24 07:00 FL lumbar spine 2-3V CLINICAL HISTORY: Lumbar COMPARISON STUDY: 01/01/17 FLUOROSCOPY TIME: 19 seconds FLUOROSCOPY IMAGES: 3 EXPOSURE DOSE: 14.13 mGy FINDINGS: Posterior interbody rods and fusion with discectomy noted at what appears be the L2-L5 levels. Hardware appears intact. No unexpected opaque foreign bodies. IMPRESSION: Fluoroscopic assistance as above. ACT 112: Negative or not required by law. Electronically signed by: Cornell Mccauley M.D. 06/02/2024 3:14 PM PG Care Time/CCT Total # of Minutes Spent Total Time Spent with Patient: Total time spent is greater than 50% in coordination of care (as documented) at patient's floor/unit and/or counseling patient: Coding Level of Care Code 01559 SUB INP/OBS CARE 3/50MIN Diagnoses Spinal stenosis of lumbar region with neurogenic claudication M48.062 Neurogenic claudication status: with neurogenic claudication HTN (hypertension) I10 (1) Spinal stenosis of lumbar region Neurogenic claudication status: with neurogenic claudication Qualified Code(s): M48.062 - Spinal stenosis, lumbar region with neurogenic claudication"
[2024-06-03] MEDS: DOCUSATE SODIUM 100 MG CAP PO SCH (10:19)
--- NOTE | 2024-06-03 10:50 | Orthopedic Progress Note ---
Date of Service June 03, 2024 Assessment & Plan (1) Spinal stenosis of lumbar region: Plan: This time initiate physical therapy monitor his THU output over the discharge home next few days. Admission and Anticipated Discharge Date Admission Date: June 01, 2024 Subjective Back pain is controlled leg symptoms markedly improved Physical Exam Physical Exam: Patient is in bed. ly he is comfortable. Demonstrates excellent strength test ing. Results & Data Vital Signs (Past 12 Hours) Vital Signs Temp Pulse Resp BP Pulse Ox O2 Del Method O2 Flow Rate 06/03/24 10:23 Room Air 06/03/24 07:39 36.7 C 85 18 123/82 100 Nasal Cannula 2 06/03/24 07:35 Nasal Cannula 2 06/03/24 03:08 36.8 C 68 16 124/85 100 Nasal Cannula 2 06/02/24 23:00 36.8 C 78 18 110/73 97 Nasal Cannula 2 (1) Spinal stenosis of lumbar region Neurogenic claudication status: with neurogenic claudication Qualified Code(s): M48.062 - Spinal stenosis, lumbar region with neurogenic claudication
[2024-06-03] MEDS: HYDROCODONE/ACETAMOPHEN 5/325MG TAB PO PRN (11:16)
--- NOTE | 2024-06-04 07:52 | Hospitalist Progress Note ---
"Date of Service June 04, 2024 Assessment & Plan (1) Spinal stenosis of lumbar region: Plan: Spinal Stenosis | History of L2-L3 Spinal Fusion -Significant worsening of symptoms in the 24 hours leading to admission -Lumbar spine MRI shows critical spinal stenosis at L4-L5, moderate right and severe left L4-L ad mild right L5-S1 neural foraminal stenosis with impingement of right L3 and bilateral L4 nerve Ortho spine consulted. Scheduled for July operation with Dr. Izaguirre. Discussed case with Dr. Izaguirre via phone call 05/31. Unfortunately, unavailable until Saturday 06/02 and to continue current medical management/pain control until that time. Seen by ortho PA and decision was to undergo surgery s/p L2-L3 hardware removal, L3-L4, L4-L5 decompression, instrumented fusion L2- L5 surgery with Dr. Izaguirre 06/02/2024. WBC elevation 2nd to steroids. Afebrile. Hgb 12.1--> 13.0 despite THU output 530cc + 235cc. Acute blood loss anemia from surgery as well as dilutional aspect from IVF. Does appear dehydrated. Will continue HCTZ on hold. Valsartan continued for BP control but monitor to hold if needed Continue aggressive bowel regimen/monitor for ileus given prior w/ back surgery - Small BM 06/02, additional this morning 06/04. Getting enema x 1 today Tang removed 06/03, urinating without issues reported but monitor for retention as needed PT/OT consults, Dispo: possible dc next 24-48 hours if moving bowels/pain controlled (2) HTN (hypertension): Plan: BP lower last evening and initially placed valsartan on hold (prior hold orders for HCTZ) and continued on metoprolol Resumed valsartan, continues metoprolol HCTZ remains on hold for dehydration on exam and encouraged PO intake. Will avoid IVF for now but can monitor if not able to keep up with PO Plan VTE Prophylaxis: Heparin pre-op, now with SCDs/JOANIE bishop post-operatively and per Dr Izaguirre to not order any Heparin/Lovenox SQ at this time Dispo: possible dc tomorrow if THU output decreased and moving bowels. Admission and Anticipated Discharge Date Admission Date: June 01, 2024 Subjective Evaluated this morning, pain a little worse today as expected. Did have small bowel movement this morning, passing some gas but would like enema if ok. Discussed w/ orthopedics and will have RN administer fleets enema. No fever/chills, chest pain/shortness of breath. THU emptied last evening. Expecting continued inpatient stay at least through tomorrow but will depend on pain control/bowels moving - patient does not want to leave until having moved his bowels. BP elevated this morning but was a little low last night. HCTZ remains on hold. No lightheaded/dizziness and continued valsartan but discussed appears a little dry/push oral fluids encouraged. Questions/concerns addressed at this time. Physical Exam 2 Physical Exam: General: 69 yo male sitting in bed, slightly more uncomfortable today but NAD HEENT: head atraumatic, normocephalic, mm slightly dry, trachea midline Resp: even/unlabored, no w/c/r, on room air 95% CV: RRR, no significant m/r/g, no pitting edema, calves nontender, pulses present, joanie hoses in place GI: +BS throughout although slight distension, nontender/no rigidity : no tang MSK/Neuro: dressing c/d/i, THU with ~50-60cc bloody/serosanguineous drainage --strength equal dorsiflexion/plantar fl exion Psych: AOx3, cooperative with exam Results & Data Results & Data Vital Signs (Past 12 Hours) Vital Signs Temp Pulse Resp BP Pulse Ox O2 Del Method 06/03/24 21:23 36.4 C L 75 16 114/75 94 Room Air Laboratory Results 06/04/24 08:16 06/04/24 08:16 Mag 2.0 PG Care Time/CCT Total # of Minutes Spent Total Time Spent with Patient: Total time spent is greater than 50% in coordination of care (as documented) at patient's floor/unit and/or counseling patient: Coding Level of Care Code 95141 SUB INP/OBS CARE 2/35MIN Diagnoses Spinal stenosis of lumbar region with neurogenic claudication M48.062 Neurogenic claudication status: with neurogenic claudication HTN (hypertension) I10 (1) Spinal stenosis of lumbar region Neurogenic claudication status: with neurogenic claudication Qualified Code(s): M48.062 - Spinal stenosis, lumbar region with neurogenic claudication"
[2024-06-04 08:51] LABS: Mean Corpuscular Hemoglobin 29.3 pg (25.0-34.0); Mean Corpuscular Hgb Conc 31.7 g/dL (32.0-36.0); Mean Corpuscular Volume 92.6 fL (80.0-100.0); Mean Platelet Volume 11.3 fL (9.4-12.4); Platelet Count 230 K/uL (130-400); RDW Coefficient of Variation 13.7 % (11.5-14.5); RDW Standard Deviation 46.7 fL (36.4-46.3); Red Blood Count 4.43 M/uL (4.70-6.10); White Blood Count 18.73 K/ul (4.8-10.8)
[2024-06-04 08:56] LABS: BUN Creatinine Ratio 25.3 (10-20); Creatinine Clr Calc Pharmacy 80.2 ml/min; Est GFR (African American) 99.3 ml/min; Est GFR (Non-African American) 85.7 ml/min; Potassium 3.8 mmol/L (3.5-5.1)
[2024-06-04] MEDS: MAGNESIUM HYDROXIDE SUSP 30 ML UDC PO PRN (10:00)
--- NOTE | 2024-06-04 10:35 | Orthopedic Progress Note ---
Date of Service June 04, 2024 Assessment & Plan (1) Spinal stenosis of lumbar region: Plan: At this time continue physical therapy monitor his THU output consider discharge tomorrow. Admission and Anticipated Discharge Date Admission Date: June 01, 2024 Subjective On: Back pain controlled leg pain markedly improved Physical Exam Physical Exam: Patient is currently in bed. Is comfortable. Distracted testing. Results & Data Vital Signs (Past 12 Hours) Vital Signs Temp Pulse Pulse Resp BP BP Pulse Ox 06/04/24 08:31 96 H 152/91 H 06/04/24 08:29 95 H 142/84 H 06/04/24 07:49 36.5 C 79 18 91/58 L 95 O2 Del Method 06/04/24 08:31 06/04/24 08:29 06/04/24 07:49 Room Air (1) Spinal stenosis of lumbar region Neurogenic claudication status: with neurogenic claudication Qualified Code(s): M48.062 - Spinal stenosis, lumbar region with neurogenic claudication
[2024-06-04] MEDS: SOD PHOSPHATE/SOD BIPHOSPHATE ENEMA 132 ML BTL PR STA (11:37)
[2024-06-04] MEDS: ACETAMINOPHEN 500 MG TAB PO PRN (15:50)
[2024-06-04] MEDS: traMADol HCL 50 MG TABLET PO PRN (16:54)
[2024-06-04 21:31] VITALS: RESP 16
[2024-06-05 06:57] LABS: Hematocrit (blood only) 36.6 % (42.0-52.0); Hemoglobin 11.9 g/dl (14.0-18.0); Mean Corpuscular Hemoglobin 29.6 pg (25.0-34.0); Mean Corpuscular Hgb Conc 32.5 g/dL (32.0-36.0); Mean Platelet Volume 11.1 fL (9.4-12.4); Platelet Count 228 K/uL (130-400); RDW Coefficient of Variation 13.6 % (11.5-14.5); RDW Standard Deviation 45.3 fL (36.4-46.3); Red Blood Count 4.02 M/uL (4.70-6.10)
[2024-06-05 07:13] VITALS: PULSE 84; TEMP 97.3; O2SAT 97
[2024-06-05 07:15] LABS: BUN Creatinine Ratio 28.6 (10-20); Calcium 8.7 mg/dl (8.6-10.3); Creatinine Clr Calc Pharmacy 86.9 ml/min; Est GFR (African American) 103.5 ml/min; Est GFR (Non-African American) 89.3 ml/min; Potassium 4.3 mmol/L (3.5-5.1)
--- NOTE | 2024-06-05 08:11 | Hospitalist Progress Note ---
"Date of Service June 05, 2024 Assessment & Plan (1) Spinal stenosis of lumbar region: Plan: Spinal Stenosis | History of L2-L3 Spinal Fusion -Significant worsening of symptoms in the 24 hours leading to admission -Lumbar spine MRI shows critical spinal stenosis at L4-L5, moderate right and severe left L4-L ad mild right L5-S1 neural foraminal stenosis with impingement of right L3 and bilateral L4 nerve Ortho spine consulted. Scheduled for July operation with Dr. Izaguirre. Discussed case with Dr. Izaguirre via phone call 05/31. Unfortunately, unavailable until Saturday 06/02 and to continue current medical management/pain control until that time. Seen by ortho PA and decision was to undergo surgery s/p L2-L3 hardware removal, L3-L4, L4-L5 decompression, instrumented fusion L2- L5 surgery with Dr. Izaguirre 06/02/2024. WBC elevation 2nd to steroids. Afebrile. Hgb 12.1--> 13.0 despite THU output 530cc + 235cc. Acute blood loss anemia from surgery as well as dilutional aspect from IVF. Does appear dehydrated. Will continue HCTZ on hold. Valsartan continued for BP control but monitor to hold if needed Continue aggressive bowel regimen/monitor for ileus given prior w/ back surgery - Small BM 06/02, additional this morning 06/04. Getting enema x 1 today Tang removed 06/03, urinating without issues reported but monitor for retention as needed PT/OT consults, Dispo: possible dc next 24-48 hours if moving bowels/pain controlled 06/05 Large BM reported. Continue bowel regimen on pain medications.*Cautious use tramadol given patient reported making him hallucinate in the past and instructed not to take w/ flexeril however he wasn't rx flexeril at dc and message to ortho to inquire if able to send at discharge WBC elevation suspected from steroids, afebrile HCTZ on hold, hydration status appears improved. DISCUSSED given prior issues w/ low potassium and was given while on amlodipine which caused swelling and not effective for BP and to HOLD OFF RESUMING to prevent worsened dehydration or renal function and monitor BPs at home/discuss with primary care if needing to resume. Is on valsartan and discssued can cause to hold onto potassium however K 4.3 and had issues with HYPOkalemia in the past, further reason to avoid HCTZ if not needing for swelling/fluid retention DC planned for today. (2) HTN (hypertension): Plan: BP lower last evening and initially placed valsartan on hold (prior hold orders for HCTZ) and continued on metoprolol Resumed valsartan, continues metoprolol HCTZ ABOVE ON HOLD AT DC AND TO MONITOR BP/DISCUSS W PCP IF NEEDING TO RESUME BUT SEE ABOVE Plan Discharge per orthopedic spine surgery Admission and Anticipated Discharge Date Admission Date: June 01, 2024 Subjective Eval this morning, given flexeril and tramadol this morning likely causing to be a little more sleepy today. Encouraged not taking both at same time. Discussed with at bedside, RN giving dc instruction and not send on flexeril and will message orthopedics to inquire to get for at discharge. Moved bowels overnight, to continue bowel regimen. Home magnesium. Discussed HCTZ use, and he was on w/ some swelling in the legs in the past but thought due to amlodipine use which wasn't helpful and was discontinued. Discussed BPs acceptable off such in setting of surgery/pain control and he notes he's had issues with low potassium in the past. K 4.3 on AM labs and instructed to HOLD OFF HCTZ at dc for now, monitor BPs at home and discuss with primary care about resuming in follow up at lower dose possibly if needed or another agent if required. Questions/concerns addressed at this time. Physical Exam 2 Physical Exam: General: 69 yo male sitting in bed, at bedside, NAD, some R sided sciatica pain HEENT: head atraumatic, normocephalic, mm slightly dry, trachea midline Resp: even/unlabored, no w/c/r, on room air 95% CV: RRR, no significant m/r/g, no pitting edema, calves nontender, pulses present, joanie hoses in place GI: +BS throughout, less distension, nontender : no tang MSK/Neuro: lower ext strength testing acceptable, pulses present, +R buttocks discomfort/sciatic type pain. no obvious findings on skin exam Psych: AOx3, cooperative with exam Results & Data Results & Data Vital Signs (Past 12 Hours) Vital Signs Temp Pulse Resp BP Pulse Ox O2 Del Method 06/05/24 07:12 36.3 C L 84 16 146/87 H 97 Room Air 06/04/24 21:29 36.6 C 73 16 144/83 H 95 Room Air Laboratory Results 06/05/24 06:18 06/05/24 06:18 PG Care Time/CCT Total # of Minutes Spent Total Time Spent with Patient: Total time spent is greater than 50% in coordination of care (as documented) at patient's floor/unit and/or counseling patient: Coding Level of Care Code 68860 SUB INP/OBS CARE 10/11MIN Diagnoses Spinal stenosis of lumbar region with neurogenic claudication M48.062 Neurogenic claudication status: with neurogenic claudication HTN (hypertension) I10 (1) Spinal stenosis of lumbar region Neurogenic claudication status: with neurogenic claudication Qualified Code(s): M48.062 - Spinal stenosis, lumbar region with neurogenic claudication"
--- NOTE | 2024-06-05 08:29 | Orthopedic Progress Note ---
Date of Service June 05, 2024 Assessment & Plan (1) Spinal stenosis of lumbar region: Plan: Poncho is postoperative day 3 status post hard removal with lumbar decompression and fusion. He is doing well. He is can be discharged home today. He had a bowel movement. He is doing well in physical therapy. THU drain will be removed just prior to discharge. He will have to call our office to follow-up in about 2 weeks. [phone] thank you Admission and Anticipated Discharge Date Admission Date: June 01, 2024 Angelic Santos is postoperative day 3 hard removal with lumbar decompression and fusion. He is doing well. Has some right buttock pain off and on. It is stable. He had a bowel movement. THU drain output last shift was 40 cc. H&H are 11.9 and 36.6 respectively. Yesterday in physical therapy [place] 350 feet. Review of Systems Review of Systems: All systems reviewed & are unremarkable except as noted in HPI & below Physical Exam Physical Exam: Sitting in a chair eating breakfast in no acute distress Alert and oriented x 3 Calf soft nontender bilaterally strength intact bilateral lower extremities Lumbar dressing is clean dry and intact with functioning THU drain Results & Data Vital Signs (Past 12 Hours) Vital Signs Temp Pulse Resp BP Pulse Ox O2 Del Method 06/05/24 07:12 36.3 C L 84 16 146/87 H 97 Room Air 06/04/24 21:29 36.6 C 73 16 144/83 H 95 Room Air (1) Spinal stenosis of lumbar region Neurogenic claudication status: with neurogenic claudication Qualified Code(s): M48.062 - Spinal stenosis, lumbar region with neurogenic claudication
[2024-06-05 10:05] VITALS: BP 142/84
== END 2024-06-05 12:44 | disposition home or self-care (01) | DRG 454 ==
LOC: 3E 19:37 → ED 19:37 → SUATTDRO 05-31 03:53 → 3E 05-31 04:52 → SUATTDRO 06-01 16:56